=== PATIENT | female | born 1950 | race Caucasian/White ===

== ENCOUNTER 2018-08-07 18:14 | Observation (INO) ==
--- NOTE | 2018-08-07 19:23 | ED ---
HPI General Chief complaint: Altered Mental Status Stated complaint: Poss AMS Time Seen by Provider: 08/07/18 18:26 History of Present Illness HPI narrative: 68-year-old female with a history of type 1 diabetes is brought to the emergency department by EMS for evaluation of altered mental status and hypotension. Per EMS report the police were called by a neighbor to check on the patient who was driving erratically in her neighborhood. When police arrived on scene the patient was unconscious but easily arousable in her car in front of her house with the car door open. Per EMS when they arrived the patient's blood pressure was around 70/30. They have given her 1 L of fluids and her blood pressure has improved. Glucose has been normal, 120s. The patient states that this morning she was feeling fine with no issues. States that she went to the doctor for regular appointment and then went to the grocery store, after that he does not remember exactly what happened. The next thing she remembers is EMS picking her up. The patient's is at bedside and states that she was acting normally this morning and he spoke with her on the phone at 3 PM and she was normal then as well. The patient states this has never happened to her previously. She denies any chest pain, shortness of breath, abdominal pain, nausea, vomiting, diarrhea, black or bloody stool, numbness or tingling, one-sided weakness, headache, vision changes. She does complain of feeling tired. She is also complaining of mild nausea, states that this has been a chronic ongoing issue and is not new. Related Data Home Medications Medication Instructions Recorded Confirmed insulin lispro [Humalog U-100 25 unit SUB-Q QAM 08/07/18 08/07/18 Insulin] trazodone 50 mg PO DAILY 08/07/18 08/07/18 Previous Rx's Medication Instructions Recorded aspirin 81 mg PO DAILY #30 tab 08/09/18 atorvastatin 20 mg PO HS #30 tab 08/09/18 clopidogrel [Plavix] 75 mg PO DAILY #30 tab 08/09/18 nitrofurantoin monohyd/m-cryst 100 mg PO BIDPC #10 cap 08/09/18 Allergies Allergy/AdvReac Type Severity Reaction Status Date / Time No Known Allergies Allergy Unverified 08/07/18 18:32 Review of Systems ROS: all other systems reviewed are negative [facility] Social History Social History Substance History: No History of Abuse Second Hand Smoke Exposure: No Smoking Status: Former smoker How Often Do You Have a Drink Containing Alcohol: 4 or more times a week Recent Travel in [facility] within the Last 8 Weeks: No Immunization History Tetanus Immunization: >5 Years Hx Influenza Vaccine This Season: No Exam Narrative Exam Narrative: GENERAL: Well-nourished and well-developed pleasant patient in no acute distress who is nontoxic appearing. SKIN: Warm and dry. HEAD: Normocephalic and atraumatic. EYES: No injection, drainage, or hyphema noted. PERRLA. EOMI. ENT: No nasal drainage noted. Oropharynx is clear. NECK: Supple and the trachea is midline. CARDIOVASCULAR: Regular rate and rhythm. RESPIRATORY: Breath sounds are equal bilaterally with no accessory muscle use, wheezing, rhonchi, or crackles. GASTROINTESTINAL: Abdomen is soft, non-tender, and nondistended. MUSCULOSKELETAL: No obvious deformities, swelling, cyanosis, or ecchymosis is present throughout the upper and lower extremities. Patient has full range of motion without any signs of neurovascular compromise. Distal pulses are 2+ throughout. Strength 5/5 upper and lower extremities and equal bilaterally. NEUROLOGICAL: Awake, alert, and oriented. Normal speech and gait. Cranial nerves are grossly intact. Course Initial Documented Vital Signs Temperature 98.2 F 08/07/18 18:20 Pulse Rate 61 08/07/18 18:20 Respiratory Rate 20 08/07/18 18:20 Blood Pressure 146/70 H 08/07/18 18:20 Pulse Oximetry 96 08/07/18 18:20 Last Documented Vital Signs Temperature 97.6 F 08/10/18 08:00 Pulse Rate 52 L 08/10/18 09:00 Respiratory Rate 18 08/10/18 08:00 Blood Pressure 210/79 H 08/10/18 08:00 Pulse Oximetry 96 08/10/18 08:00 Medical Decision Making [facility] Narrative Medical decision making narrative: Head CT is negative. 68-year-old female presents to the emergency department for evaluation of altered mental status and hypotension. Patient is afebrile. Blood pressure is now stable at 146/70. Otherwise vital signs are within normal limits. Physical examination is essentially unremarkable. IV access is obtained, labs been drawn and sent. Patient is placed on cardiac telemetry and pulse oximetry monitoring. CT of the head has been ordered and is pending. Patient given Zofran for nausea. EKG shows sinus rhythm with no acute ST elevations or depressions. CBC is unremarkable. Coags are unremarkable. CMP is unremarkable. Troponin is elevated at 0.09. Alcohol is 36. Chest x-ray is negative. Head CT is negative. Patient has remained stable and without complaint while here in the ED. She has had 1.5 L of fluid and her blood pressure has normalized. She is much more awake at this time however does still complain of fatigue. Discussed with patient and recommend observation and trending out of cardiac enzymes. Patient verbalizes understanding and agreement with treatment plan. Medical Screen Exam Complete: Yes Emergency Medical Condition: Yes Differential Diagnosis Differential Diagnosis: Dehydration versus electrolyte abnormality versus medication reaction versus substance abuse Lab Data Result diagrams: 08/08/18 02:31 08/08/18 02:31 Lab Results 08/07/18 08/07/18 08/07/18 Range/Units 19:58 19:58 19:58 WBC 4.4 (4.0-11.0) th/mm3 RBC 4.48 (4.00-5.30) mil/mm3 Hgb 13.7 (11.6-15.3) gm/dL Hct 41.8 (35.0-46.0) % MCV 93.4 (80.0-100.0) fL MCH 30.6 (27.0-34.0) pg MCHC 32.8 (32.0-36.0) % RDW 13.5 (11.6-17.2) % Plt Count 205 (150-450) th/mm3 MPV 10.3 (7.0-11.0) fL Neut % (Auto) 56.1 (16.0-70.0) % Lymph % (Auto) 31.0 (9.0-44.0) % Ross % (Auto) 9.4 H (0.0-8.0) % Eos % (Auto) 3.0 (0.0-4.0) % Baso % (Auto) 0.5 (0.0-2.0) % Neut # (Auto) 2.5 (1.8-7.7) th/mm3 Lymph # (Auto) 1.4 (1.0-4.8) th/mm3 Ross # (Auto) 0.4 (0.0-0.9) th/mm3 Eos # (Auto) 0.1 (0.0-0.4) th/mm3 Baso # (Auto) 0.0 (0.0-0.2) th/mm3 WBC Differential . Differential Comment Auto diff final ESR (0-30) mm/hr PT 10.5 (9.8-11.6) sec INR 1.0 Ratio APTT 23.1 L (24.3-30.1) sec Sodium 146 H (136-145) meq/L Potassium 3.9 (3.5-5.1) meq/L Chloride 111 H (98-107) meq/L Carbon Dioxide 27.4 (21.0-32.0) meq/L Anion Gap 8 (5-15) meq/L BUN 17 (7-18) mg/dL Creatinine 1.00 (0.50-1.00) mg/dL Estimated GFR 55 L (>89) mL/min POC Glucose (68-110) mg/dl Random Glucose 87 (74-106) mg/dL Hemoglobin A1c (4.3-6.0) % Calcium 8.4 L (8.5-10.1) mg/dL Total Bilirubin 0.2 (0.2-1.0) mg/dL AST 14 L (15-37) U/L ALT 17 (10-53) U/L Alkaline Phosphatase 80 (45-117) U/L Ammonia (11-32) mcmol/L Total Creatine Kinase (26-192) U/L Troponin I 0.09 H (0.02-0.05) ng/mL Total Protein 6.4 (6.4-8.2) g/dL Albumin 3.2 L (3.4-5.0) g/dL Triglycerides (42-150) mg/dL Cholesterol (120-200) mg/dL LDL Cholesterol, Calc (0-99) mg/dL HDL Cholesterol (40.0-60.0) mg/dL Cholesterol/HDL Ratio Ratio Vitamin B12 (193-986) pg/mL TSH (0.358-3.740) uIU/mL Free T4 (0.76-1.46) ng/dL Urine Color (Yellw/Straw) Urine Clarity (Clear) Urine pH (5.0-8.5) Ur Specific Mclean (1.002-1.035) Urine Protein (Neg-Trace) mg/dL Urine Glucose (UA) (Negative) mg/dL Urine Ketones (Negative) mg/dL Urine Occult Blood (Negative) Urine Nitrate (Negative) Urine Bilirubin (Negative) Urine Urobilinogen (Less than 2) mg/dL Ur Leukocyte Esterase (Negative) Urine RBC (0-3) /hpf Urine WBC (0-5) /hpf Urine WBC Clumps (None) Ur Squamous Epith Cells (0-5) /hpf Urine Bacteria (None) /hpf Micro UA Comment Ur Microscopic Review Urine Culture Comments Urine Opiates Screen (Neg) Ur Barbiturates Screen (Neg) Ur Amphetamines Screen (Neg) U Benzodiazepines Scrn (Neg) Urine Cocaine Screen (Neg) U Cannabinoids Screen (Neg) Serum Alcohol (0-5) mg/dL CATHY Screen (Neg) 08/07/18 08/07/18 08/07/18 Range/Units 19:58 21:20 21:20 WBC (4.0-11.0) th/mm3 RBC (4.00-5.30) mil/mm3 Hgb (11.6-15.3) gm/dL Hct (35.0-46.0) % MCV (80.0-100.0) fL MCH (27.0-34.0) pg MCHC (32.0-36.0) % RDW (11.6-17.2) % Plt Count (150-450) th/mm3 MPV (7.0-11.0) fL Neut % (Auto) (16.0-70.0) % Lymph % (Auto) (9.0-44.0) % Ross % (Auto) (0.0-8.0) % Eos % (Auto) (0.0-4.0) % Baso % (Auto) (0.0-2.0) % Neut # (Auto) (1.8-7.7) th/mm3 Lymph # (Auto) (1.0-4.8) th/mm3 Ross # (Auto) (0.0-0.9) th/mm3 Eos # (Auto) (0.0-0.4) th/mm3 Baso # (Auto) (0.0-0.2) th/mm3 WBC Differential Differential Comment ESR (0-30) mm/hr PT (9.8-11.6) sec INR Ratio APTT (24.3-30.1) sec Sodium (136-145) meq/L Potassium (3.5-5.1) meq/L Chloride (98-107) meq/L Carbon Dioxide (21.0-32.0) meq/L Anion Gap (5-15) meq/L BUN (7-18) mg/dL Creatinine (0.50-1.00) mg/dL Estimated GFR (>89) mL/min POC Glucose (68-110) mg/dl Random Glucose (74-106) mg/dL Hemoglobin A1c (4.3-6.0) % Calcium (8.5-10.1) mg/dL Total Bilirubin (0.2-1.0) mg/dL AST (15-37) U/L ALT (10-53) U/L Alkaline Phosphatase (45-117) U/L Ammonia (11-32) mcmol/L Total Creatine Kinase (26-192) U/L Troponin I (0.02-0.05) ng/mL Total Protein (6.4-8.2) g/dL Albumin (3.4-5.0) g/dL Triglycerides (42-150) mg/dL Cholesterol (120-200) mg/dL LDL Cholesterol, Calc (0-99) mg/dL HDL Cholesterol (40.0-60.0) mg/dL Cholesterol/HDL Ratio Ratio Vitamin B12 (193-986) pg/mL TSH (0.358-3.740) uIU/mL Free T4 (0.76-1.46) ng/dL Urine Color Yellow (Yellw/Straw) Urine Clarity Hazy H (Clear) Urine pH 5.0 (5.0-8.5) Ur Specific Mclean 1.006 (1.002-1.035) Urine Protein Negative (Neg-Trace) mg/dL Urine Glucose (UA) Negative (Negative) mg/dL Urine Ketones Negative (Negative) mg/dL Urine Occult Blood Negative (Negative) Urine Nitrate Negative (Negative) Urine Bilirubin Negative (Negative) Urine Urobilinogen Less than 2 (Less than 2) mg/dL Ur Leukocyte Esterase Small H (Negative) Urine RBC 1 (0-3) /hpf Urine WBC 10 H (0-5) /hpf Urine WBC Clumps Rare H (None) Ur Squamous Epith Cells <1 (0-5) /hpf Urine Bacteria Occasional H (None) /hpf Micro UA Comment Culture indicated Ur Microscopic Review Not Reportable Urine Culture Comments Culture indicated Urine Opiates Screen Neg (Neg) Ur Barbiturates Screen Neg (Neg) Ur Amphetamines Screen Neg (Neg) U Benzodiazepines Scrn Pos H (Neg) Urine Cocaine Screen Neg (Neg) U Cannabinoids Screen Neg (Neg) Serum Alcohol 36 H (0-5) mg/dL CATHY Screen (Neg) 08/07/18 08/08/18 08/08/18 Range/Units 23:29 02:04 02:31 WBC 5.4 (4.0-11.0) th/mm3 RBC 4.54 (4.00-5.30) mil/mm3 Hgb 14.0 (11.6-15.3) gm/dL Hct 41.8 (35.0-46.0) % MCV 92.0 (80.0-100.0) fL MCH 30.8 (27.0-34.0) pg MCHC 33.5 (32.0-36.0) % RDW 13.4 (11.6-17.2) % Plt Count 204 (150-450) th/mm3 MPV 10.7 (7.0-11.0) fL Neut % (Auto) 58.0 (16.0-70.0) % Lymph % (Auto) 27.8 (9.0-44.0) % Ross % (Auto) 10.1 H (0.0-8.0) % Eos % (Auto) 3.3 (0.0-4.0) % Baso % (Auto) 0.8 (0.0-2.0) % Neut # (Auto) 3.1 (1.8-7.7) th/mm3 Lymph # (Auto) 1.5 (1.0-4.8) th/mm3 Ross # (Auto) 0.5 (0.0-0.9) th/mm3 Eos # (Auto) 0.2 (0.0-0.4) th/mm3 Baso # (Auto) 0.0 (0.0-0.2) th/mm3 WBC Differential . Differential Comment Auto diff final ESR (0-30) mm/hr PT (9.8-11.6) sec INR Ratio APTT (24.3-30.1) sec Sodium (136-145) meq/L Potassium (3.5-5.1) meq/L Chloride (98-107) meq/L Carbon Dioxide (21.0-32.0) meq/L Anion Gap (5-15) meq/L BUN (7-18) mg/dL Creatinine (0.50-1.00) mg/dL Estimated GFR (>89) mL/min POC Glucose 101 112 H (68-110) mg/dl Random Glucose (74-106) mg/dL Hemoglobin A1c (4.3-6.0) % Calcium (8.5-10.1) mg/dL Total Bilirubin (0.2-1.0) mg/dL AST (15-37) U/L ALT (10-53) U/L Alkaline Phosphatase (45-117) U/L Ammonia (11-32) mcmol/L Total Creatine Kinase (26-192) U/L Troponin I (0.02-0.05) ng/mL Total Protein (6.4-8.2) g/dL Albumin (3.4-5.0) g/dL Triglycerides (42-150) mg/dL Cholesterol (120-200) mg/dL LDL Cholesterol, Calc (0-99) mg/dL HDL Cholesterol (40.0-60.0) mg/dL Cholesterol/HDL Ratio Ratio Vitamin B12 (193-986) pg/mL TSH (0.358-3.740) uIU/mL Free T4 (0.76-1.46) ng/dL Urine Color (Yellw/Straw) Urine Clarity (Clear) Urine pH (5.0-8.5) Ur Specific Mclean (1.002-1.035) Urine Protein (Neg-Trace) mg/dL Urine Glucose (UA) (Negative) mg/dL Urine Ketones (Negative) mg/dL Urine Occult Blood (Negative) Urine Nitrate (Negative) Urine Bilirubin (Negative) Urine Urobilinogen (Less than 2) mg/dL Ur Leukocyte Esterase (Negative) Urine RBC (0-3) /hpf Urine WBC (0-5) /hpf Urine WBC Clumps (None) Ur Squamous Epith Cells (0-5) /hpf Urine Bacteria (None) /hpf Micro UA Comment Ur Microscopic Review Urine Culture Comments Urine Opiates Screen (Neg) Ur Barbiturates Screen (Neg) Ur Amphetamines Screen (Neg) U Benzodiazepines Scrn (Neg) Urine Cocaine Screen (Neg) U Cannabinoids Screen (Neg) Serum Alcohol (0-5) mg/dL CATHY Screen (Neg) 08/08/18 08/08/18 08/08/18 Range/Units 02:31 05:28 09:08 WBC (4.0-11.0) th/mm3 RBC (4.00-5.30) mil/mm3 Hgb (11.6-15.3) gm/dL Hct (35.0-46.0) % MCV (80.0-100.0) fL MCH (27.0-34.0) pg MCHC (32.0-36.0) % RDW (11.6-17.2) % Plt Count (150-450) th/mm3 MPV (7.0-11.0) fL Neut % (Auto) (16.0-70.0) % Lymph % (Auto) (9.0-44.0) % Ross % (Auto) (0.0-8.0) % Eos % (Auto) (0.0-4.0) % Baso % (Auto) (0.0-2.0) % Neut # (Auto) (1.8-7.7) th/mm3 Lymph # (Auto) (1.0-4.8) th/mm3 Ross # (Auto) (0.0-0.9) th/mm3 Eos # (Auto) (0.0-0.4) th/mm3 Baso # (Auto) (0.0-0.2) th/mm3 WBC Differential Differential Comment ESR (0-30) mm/hr PT (9.8-11.6) sec INR Ratio APTT (24.3-30.1) sec Sodium 146 H (136-145) meq/L Potassium 4.1 (3.5-5.1) meq/L Chloride 111 H (98-107) meq/L Carbon Dioxide 27.7 (21.0-32.0) meq/L Anion Gap 7 (5-15) meq/L BUN 14 (7-18) mg/dL Creatinine 0.92 (0.50-1.00) mg/dL Estimated GFR 61 L (>89) mL/min POC Glucose 101 96 (68-110) mg/dl Random Glucose 98 (74-106) mg/dL Hemoglobin A1c (4.3-6.0) % Calcium 8.4 L (8.5-10.1) mg/dL Total Bilirubin (0.2-1.0) mg/dL AST (15-37) U/L ALT (10-53) U/L Alkaline Phosphatase (45-117) U/L Ammonia (11-32) mcmol/L Total Creatine Kinase 38 (26-192) U/L Troponin I 0.08 H (0.02-0.05) ng/mL Total Protein (6.4-8.2) g/dL Albumin (3.4-5.0) g/dL Triglycerides (42-150) mg/dL Cholesterol (120-200) mg/dL LDL Cholesterol, Calc (0-99) mg/dL HDL Cholesterol (40.0-60.0) mg/dL Cholesterol/HDL Ratio Ratio Vitamin B12 (193-986) pg/mL TSH (0.358-3.740) uIU/mL Free T4 (0.76-1.46) ng/dL Urine Color (Yellw/Straw) Urine Clarity (Clear) Urine pH (5.0-8.5) Ur Specific Mclean (1.002-1.035) Urine Protein (Neg-Trace) mg/dL Urine Glucose (UA) (Negative) mg/dL Urine Ketones (Negative) mg/dL Urine Occult Blood (Negative) Urine Nitrate (Negative) Urine Bilirubin (Negative) Urine Urobilinogen (Less than 2) mg/dL Ur Leukocyte Esterase (Negative) Urine RBC (0-3) /hpf Urine WBC (0-5) /hpf Urine WBC Clumps (None) Ur Squamous Epith Cells (0-5) /hpf Urine Bacteria (None) /hpf Micro UA Comment Ur Microscopic Review Urine Culture Comments Urine Opiates Screen (Neg) Ur Barbiturates Screen (Neg) Ur Amphetamines Screen (Neg) U Benzodiazepines Scrn (Neg) Urine Cocaine Screen (Neg) U Cannabinoids Screen (Neg) Serum Alcohol (0-5) mg/dL CATHY Screen (Neg) 08/08/18 08/08/18 08/08/18 Range/Units 11:46 12:15 16:37 WBC (4.0-11.0) th/mm3 RBC (4.00-5.30) mil/mm3 Hgb (11.6-15.3) gm/dL Hct (35.0-46.0) % MCV (80.0-100.0) fL MCH (27.0-34.0) pg MCHC (32.0-36.0) % RDW (11.6-17.2) % Plt Count (150-450) th/mm3 MPV (7.0-11.0) fL Neut % (Auto) (16.0-70.0) % Lymph % (Auto) (9.0-44.0) % Ross % (Auto) (0.0-8.0) % Eos % (Auto) (0.0-4.0) % Baso % (Auto) (0.0-2.0) % Neut # (Auto) (1.8-7.7) th/mm3 Lymph # (Auto) (1.0-4.8) th/mm3 Ross # (Auto) (0.0-0.9) th/mm3 Eos # (Auto) (0.0-0.4) th/mm3 Baso # (Auto) (0.0-0.2) th/mm3 WBC Differential Differential Comment ESR (0-30) mm/hr PT (9.8-11.6) sec INR Ratio APTT (24.3-30.1) sec Sodium (136-145) meq/L Potassium (3.5-5.1) meq/L Chloride (98-107) meq/L Carbon Dioxide (21.0-32.0) meq/L Anion Gap (5-15) meq/L BUN (7-18) mg/dL Creatinine (0.50-1.00) mg/dL Estimated GFR (>89) mL/min POC Glucose 108 230 H (68-110) mg/dl Random Glucose (74-106) mg/dL Hemoglobin A1c (4.3-6.0) % Calcium (8.5-10.1) mg/dL Total Bilirubin (0.2-1.0) mg/dL AST (15-37) U/L ALT (10-53) U/L Alkaline Phosphatase (45-117) U/L Ammonia (11-32) mcmol/L Total Creatine Kinase 30 (26-192) U/L Troponin I 0.07 H (0.02-0.05) ng/mL Total Protein (6.4-8.2) g/dL Albumin (3.4-5.0) g/dL Triglycerides (42-150) mg/dL Cholesterol (120-200) mg/dL LDL Cholesterol, Calc (0-99) mg/dL HDL Cholesterol (40.0-60.0) mg/dL Cholesterol/HDL Ratio Ratio Vitamin B12 (193-986) pg/mL TSH (0.358-3.740) uIU/mL Free T4 (0.76-1.46) ng/dL Urine Color (Yellw/Straw) Urine Clarity (Clear) Urine pH (5.0-8.5) Ur Specific Mclean (1.002-1.035) Urine Protein (Neg-Trace) mg/dL Urine Glucose (UA) (Negative) mg/dL Urine Ketones (Negative) mg/dL Urine Occult Blood (Negative) Urine Nitrate (Negative) Urine Bilirubin (Negative) Urine Urobilinogen (Less than 2) mg/dL Ur Leukocyte Esterase (Negative) Urine RBC (0-3) /hpf Urine WBC (0-5) /hpf Urine WBC Clumps (None) Ur Squamous Epith Cells (0-5) /hpf Urine Bacteria (None) /hpf Micro UA Comment Ur Microscopic Review Urine Culture Comments Urine Opiates Screen (Neg) Ur Barbiturates Screen (Neg) Ur Amphetamines Screen (Neg) U Benzodiazepines Scrn (Neg) Urine Cocaine Screen (Neg) U Cannabinoids Screen (Neg) Serum Alcohol (0-5) mg/dL CATHY Screen (Neg) 08/08/18 08/08/18 08/08/18 Range/Units 18:01 20:30 20:30 WBC (4.0-11.0) th/mm3 RBC (4.00-5.30) mil/mm3 Hgb (11.6-15.3) gm/dL Hct (35.0-46.0) % MCV (80.0-100.0) fL MCH (27.0-34.0) pg MCHC (32.0-36.0) % RDW (11.6-17.2) % Plt Count (150-450) th/mm3 MPV (7.0-11.0) fL Neut % (Auto) (16.0-70.0) % Lymph % (Auto) (9.0-44.0) % Ross % (Auto) (0.0-8.0) % Eos % (Auto) (0.0-4.0) % Baso % (Auto) (0.0-2.0) % Neut # (Auto) (1.8-7.7) th/mm3 Lymph # (Auto) (1.0-4.8) th/mm3 Ross # (Auto) (0.0-0.9) th/mm3 Eos # (Auto) (0.0-0.4) th/mm3 Baso # (Auto) (0.0-0.2) th/mm3 WBC Differential Differential Comment ESR 12 (0-30) mm/hr PT (9.8-11.6) sec INR Ratio APTT (24.3-30.1) sec Sodium (136-145) meq/L Potassium (3.5-5.1) meq/L Chloride (98-107) meq/L Carbon Dioxide (21.0-32.0) meq/L Anion Gap (5-15) meq/L BUN (7-18) mg/dL Creatinine (0.50-1.00) mg/dL Estimated GFR (>89) mL/min POC Glucose 152 H (68-110) mg/dl Random Glucose (74-106) mg/dL Hemoglobin A1c (4.3-6.0) % Calcium (8.5-10.1) mg/dL Total Bilirubin (0.2-1.0) mg/dL AST (15-37) U/L ALT (10-53) U/L Alkaline Phosphatase (45-117) U/L Ammonia (11-32) mcmol/L Total Creatine Kinase (26-192) U/L Troponin I (0.02-0.05) ng/mL Total Protein (6.4-8.2) g/dL Albumin (3.4-5.0) g/dL Triglycerides (42-150) mg/dL Cholesterol (120-200) mg/dL LDL Cholesterol, Calc (0-99) mg/dL HDL Cholesterol (40.0-60.0) mg/dL Cholesterol/HDL Ratio Ratio Vitamin B12 321 (193-986) pg/mL TSH (0.358-3.740) uIU/mL Free T4 0.86 (0.76-1.46) ng/dL Urine Color (Yellw/Straw) Urine Clarity (Clear) Urine pH (5.0-8.5) Ur Specific Mclean (1.002-1.035) Urine Protein (Neg-Trace) mg/dL Urine Glucose (UA) (Negative) mg/dL Urine Ketones (Negative) mg/dL Urine Occult Blood (Negative) Urine Nitrate (Negative) Urine Bilirubin (Negative) Urine Urobilinogen (Less than 2) mg/dL Ur Leukocyte Esterase (Negative) Urine RBC (0-3) /hpf Urine WBC (0-5) /hpf Urine WBC Clumps (None) Ur Squamous Epith Cells (0-5) /hpf Urine Bacteria (None) /hpf Micro UA Comment Ur Microscopic Review Urine Culture Comments Urine Opiates Screen (Neg) Ur Barbiturates Screen (Neg) Ur Amphetamines Screen (Neg) U Benzodiazepines Scrn (Neg) Urine Cocaine Screen (Neg) U Cannabinoids Screen (Neg) Serum Alcohol (0-5) mg/dL CATHY Screen (Neg) 08/08/18 08/08/18 08/09/18 Range/Units 20:30 22:49 05:57 WBC (4.0-11.0) th/mm3 RBC (4.00-5.30) mil/mm3 Hgb (11.6-15.3) gm/dL Hct (35.0-46.0) % MCV (80.0-100.0) fL MCH (27.0-34.0) pg MCHC (32.0-36.0) % RDW (11.6-17.2) % Plt Count (150-450) th/mm3 MPV (7.0-11.0) fL Neut % (Auto) (16.0-70.0) % Lymph % (Auto) (9.0-44.0) % Ross % (Auto) (0.0-8.0) % Eos % (Auto) (0.0-4.0) % Baso % (Auto) (0.0-2.0) % Neut # (Auto) (1.8-7.7) th/mm3 Lymph # (Auto) (1.0-4.8) th/mm3 Ross # (Auto) (0.0-0.9) th/mm3 Eos # (Auto) (0.0-0.4) th/mm3 Baso # (Auto) (0.0-0.2) th/mm3 WBC Differential Differential Comment ESR (0-30) mm/hr PT (9.8-11.6) sec INR Ratio APTT (24.3-30.1) sec Sodium (136-145) meq/L Potassium (3.5-5.1) meq/L Chloride (98-107) meq/L Carbon Dioxide (21.0-32.0) meq/L Anion Gap (5-15) meq/L BUN (7-18) mg/dL Creatinine (0.50-1.00) mg/dL Estimated GFR (>89) mL/min POC Glucose 108 (68-110) mg/dl Random Glucose (74-106) mg/dL Hemoglobin A1c 5.9 (4.3-6.0) % Calcium (8.5-10.1) mg/dL Total Bilirubin (0.2-1.0) mg/dL AST (15-37) U/L ALT (10-53) U/L Alkaline Phosphatase (45-117) U/L Ammonia (11-32) mcmol/L Total Creatine Kinase (26-192) U/L Troponin I (0.02-0.05) ng/mL Total Protein (6.4-8.2) g/dL Albumin (3.4-5.0) g/dL Triglycerides (42-150) mg/dL Cholesterol (120-200) mg/dL LDL Cholesterol, Calc (0-99) mg/dL HDL Cholesterol (40.0-60.0) mg/dL Cholesterol/HDL Ratio Ratio Vitamin B12 (193-986) pg/mL TSH (0.358-3.740) uIU/mL Free T4 (0.76-1.46) ng/dL Urine Color (Yellw/Straw) Urine Clarity (Clear) Urine pH (5.0-8.5) Ur Specific Mclean (1.002-1.035) Urine Protein (Neg-Trace) mg/dL Urine Glucose (UA) (Negative) mg/dL Urine Ketones (Negative) mg/dL Urine Occult Blood (Negative) Urine Nitrate (Negative) Urine Bilirubin (Negative) Urine Urobilinogen (Less than 2) mg/dL Ur Leukocyte Esterase (Negative) Urine RBC (0-3) /hpf Urine WBC (0-5) /hpf Urine WBC Clumps (None) Ur Squamous Epith Cells (0-5) /hpf Urine Bacteria (None) /hpf Micro UA Comment Ur Microscopic Review Urine Culture Comments Urine Opiates Screen (Neg) Ur Barbiturates Screen (Neg) Ur Amphetamines Screen (Neg) U Benzodiazepines Scrn (Neg) Urine Cocaine Screen (Neg) U Cannabinoids Screen (Neg) Serum Alcohol (0-5) mg/dL CATHY Screen Neg (Neg) 08/09/18 08/09/18 08/09/18 Range/Units 05:57 07:43 11:25 WBC (4.0-11.0) th/mm3 RBC (4.00-5.30) mil/mm3 Hgb (11.6-15.3) gm/dL Hct (35.0-46.0) % MCV (80.0-100.0) fL MCH (27.0-34.0) pg MCHC (32.0-36.0) % RDW (11.6-17.2) % Plt Count (150-450) th/mm3 MPV (7.0-11.0) fL Neut % (Auto) (16.0-70.0) % Lymph % (Auto) (9.0-44.0) % Ross % (Auto) (0.0-8.0) % Eos % (Auto) (0.0-4.0) % Baso % (Auto) (0.0-2.0) % Neut # (Auto) (1.8-7.7) th/mm3 Lymph # (Auto) (1.0-4.8) th/mm3 Ross # (Auto) (0.0-0.9) th/mm3 Eos # (Auto) (0.0-0.4) th/mm3 Baso # (Auto) (0.0-0.2) th/mm3 WBC Differential Differential Comment ESR (0-30) mm/hr PT (9.8-11.6) sec INR Ratio APTT (24.3-30.1) sec Sodium (136-145) meq/L Potassium (3.5-5.1) meq/L Chloride (98-107) meq/L Carbon Dioxide (21.0-32.0) meq/L Anion Gap (5-15) meq/L BUN (7-18) mg/dL Creatinine (0.50-1.00) mg/dL Estimated GFR (>89) mL/min POC Glucose 115 H 142 H (68-110) mg/dl Random Glucose (74-106) mg/dL Hemoglobin A1c (4.3-6.0) % Calcium (8.5-10.1) mg/dL Total Bilirubin (0.2-1.0) mg/dL AST (15-37) U/L ALT (10-53) U/L Alkaline Phosphatase (45-117) U/L Ammonia (11-32) mcmol/L Total Creatine Kinase (26-192) U/L Troponin I (0.02-0.05) ng/mL Total Protein (6.4-8.2) g/dL Albumin (3.4-5.0) g/dL Triglycerides 238 H (42-150) mg/dL Cholesterol 185 (120-200) mg/dL LDL Cholesterol, Calc 93 (0-99) mg/dL HDL Cholesterol 44.8 (40.0-60.0) mg/dL Cholesterol/HDL Ratio 4.12 Ratio Vitamin B12 (193-986) pg/mL TSH 2.830 (0.358-3.740) uIU/mL Free T4 (0.76-1.46) ng/dL Urine Color (Yellw/Straw) Urine Clarity (Clear) Urine pH (5.0-8.5) Ur Specific Mclean (1.002-1.035) Urine Protein (Neg-Trace) mg/dL Urine Glucose (UA) (Negative) mg/dL Urine Ketones (Negative) mg/dL Urine Occult Blood (Negative) Urine Nitrate (Negative) Urine Bilirubin (Negative) Urine Urobilinogen (Less than 2) mg/dL Ur Leukocyte Esterase (Negative) Urine RBC (0-3) /hpf Urine WBC (0-5) /hpf Urine WBC Clumps (None) Ur Squamous Epith Cells (0-5) /hpf Urine Bacteria (None) /hpf Micro UA Comment Ur Microscopic Review Urine Culture Comments Urine Opiates Screen (Neg) Ur Barbiturates Screen (Neg) Ur Amphetamines Screen (Neg) U Benzodiazepines Scrn (Neg) Urine Cocaine Screen (Neg) U Cannabinoids Screen (Neg) Serum Alcohol (0-5) mg/dL CATHY Screen (Neg) 08/09/18 08/09/18 08/09/18 Range/Units 12:56 16:53 21:44 WBC (4.0-11.0) th/mm3 RBC (4.00-5.30) mil/mm3 Hgb (11.6-15.3) gm/dL Hct (35.0-46.0) % MCV (80.0-100.0) fL MCH (27.0-34.0) pg MCHC (32.0-36.0) % RDW (11.6-17.2) % Plt Count (150-450) th/mm3 MPV (7.0-11.0) fL Neut % (Auto) (16.0-70.0) % Lymph % (Auto) (9.0-44.0) % Ross % (Auto) (0.0-8.0) % Eos % (Auto) (0.0-4.0) % Baso % (Auto) (0.0-2.0) % Neut # (Auto) (1.8-7.7) th/mm3 Lymph # (Auto) (1.0-4.8) th/mm3 [place] # (Auto) (0.0-0.9) th/mm3 Eos # (Auto) (0.0-0.4) th/mm3 Baso # (Auto) (0.0-0.2) th/mm3 WBC Differential Differential Comment ESR (0-30) mm/hr PT (9.8-11.6) sec INR Ratio APTT (24.3-30.1) sec Sodium (136-145) meq/L Potassium (3.5-5.1) meq/L Chloride (98-107) meq/L Carbon Dioxide (21.0-32.0) meq/L Anion Gap (5-15) meq/L BUN (7-18) mg/dL Creatinine (0.50-1.00) mg/dL Estimated GFR (>89) mL/min POC Glucose 209 H 115 H (68-110) mg/dl Random Glucose (74-106) mg/dL Hemoglobin A1c (4.3-6.0) % Calcium (8.5-10.1) mg/dL Total Bilirubin (0.2-1.0) mg/dL AST (15-37) U/L ALT (10-53) U/L Alkaline Phosphatase (45-117) U/L Ammonia 14 (11-32) mcmol/L Total Creatine Kinase (26-192) U/L Troponin I (0.02-0.05) ng/mL Total Protein (6.4-8.2) g/dL Albumin (3.4-5.0) g/dL Triglycerides (42-150) mg/dL Cholesterol (120-200) mg/dL LDL Cholesterol, Calc (0-99) mg/dL HDL Cholesterol (40.0-60.0) mg/dL Cholesterol/HDL Ratio Ratio Vitamin B12 (193-986) pg/mL TSH (0.358-3.740) uIU/mL Free T4 (0.76-1.46) ng/dL Urine Color (Yellw/Straw) Urine Clarity (Clear) Urine pH (5.0-8.5) Ur Specific [place] (1.002-1.035) Urine Protein (Neg-Trace) mg/dL Urine Glucose (UA) (Negative) mg/dL Urine Ketones (Negative) mg/dL Urine Occult Blood (Negative) Urine Nitrate (Negative) Urine Bilirubin (Negative) Urine Urobilinogen (Less than 2) mg/dL Ur Leukocyte Esterase (Negative) Urine RBC (0-3) /hpf Urine WBC (0-5) /hpf Urine WBC Clumps (None) Ur Squamous Epith Cells (0-5) /hpf Urine Bacteria (None) /hpf Micro UA Comment Ur Microscopic Review Urine Culture Comments Urine Opiates Screen (Neg) Ur Barbiturates Screen (Neg) Ur Amphetamines Screen (Neg) U Benzodiazepines Scrn (Neg) Urine Cocaine Screen (Neg) U Cannabinoids Screen (Neg) Serum Alcohol (0-5) mg/dL CATHY Screen (Neg) 08/10/18 Range/Units 07:14 WBC (4.0-11.0) th/mm3 RBC (4.00-5.30) mil/mm3 Hgb (11.6-15.3) gm/dL Hct (35.0-46.0) % MCV (80.0-100.0) fL MCH (27.0-34.0) pg MCHC (32.0-36.0) % RDW (11.6-17.2) % Plt Count (150-450) th/mm3 MPV (7.0-11.0) fL Neut % (Auto) (16.0-70.0) % Lymph % (Auto) (9.0-44.0) % Ross % (Auto) (0.0-8.0) % Eos % (Auto) (0.0-4.0) % Baso % (Auto) (0.0-2.0) % Neut # (Auto) (1.8-7.7) th/mm3 Lymph # (Auto) (1.0-4.8) th/mm3 Ross # (Auto) (0.0-0.9) th/mm3 Eos # (Auto) (0.0-0.4) th/mm3 Baso # (Auto) (0.0-0.2) th/mm3 WBC Differential Differential Comment ESR (0-30) mm/hr PT (9.8-11.6) sec INR Ratio APTT (24.3-30.1) sec Sodium (136-145) meq/L Potassium (3.5-5.1) meq/L Chloride (98-107) meq/L Carbon Dioxide (21.0-32.0) meq/L Anion Gap (5-15) meq/L BUN (7-18) mg/dL Creatinine (0.50-1.00) mg/dL Estimated GFR (>89) mL/min POC Glucose 159 H (68-110) mg/dl Random Glucose (74-106) mg/dL Hemoglobin A1c (4.3-6.0) % Calcium (8.5-10.1) mg/dL Total Bilirubin (0.2-1.0) mg/dL AST (15-37) U/L ALT (10-53) U/L Alkaline Phosphatase (45-117) U/L Ammonia (11-32) mcmol/L Total Creatine Kinase (26-192) U/L Troponin I (0.02-0.05) ng/mL Total Protein (6.4-8.2) g/dL Albumin (3.4-5.0) g/dL Triglycerides (42-150) mg/dL Cholesterol (120-200) mg/dL LDL Cholesterol, Calc (0-99) mg/dL HDL Cholesterol (40.0-60.0) mg/dL Cholesterol/HDL Ratio Ratio Vitamin B12 (193-986) pg/mL TSH (0.358-3.740) uIU/mL Free T4 (0.76-1.46) ng/dL Urine Color (Yellw/Straw) Urine Clarity (Clear) Urine pH (5.0-8.5) Ur Specific [place] (1.002-1.035) Urine Protein (Neg-Trace) mg/dL Urine Glucose (UA) (Negative) mg/dL Urine Ketones (Negative) mg/dL Urine Occult Blood (Negative) Urine Nitrate (Negative) Urine Bilirubin (Negative) Urine Urobilinogen (Less than 2) mg/dL Ur Leukocyte Esterase (Negative) Urine RBC (0-3) /hpf Urine WBC (0-5) /hpf Urine WBC Clumps (None) Ur Squamous Epith Cells (0-5) /hpf Urine Bacteria (None) /hpf Micro UA Comment Ur Microscopic Review Urine Culture Comments Urine Opiates Screen (Neg) Ur Barbiturates Screen (Neg) Ur Amphetamines Screen (Neg) U Benzodiazepines Scrn (Neg) Urine Cocaine Screen (Neg) U Cannabinoids Screen (Neg) Serum Alcohol (0-5) mg/dL CATHY Screen (Neg) Imaging Data Radiologist's impression: Chest X-Ray 08/07/18 19:15 CONCLUSION: No evidence of acute cardiopulmonary disease. Head CT 08/07/18 19:15 CONCLUSION: Negative noncontrast head CT. . Carotid Doppler Study 08/08/18 00:00 CONCLUSION: 1. Right Internal Carotid Artery: No significant stenosis; mild atherosclerotic plaque is visualized. 2. Left Internal Carotid Artery: No significant stenosis; mild atherosclerotic plaque is visualized. 3. Antegrade flow both vertebral arteries. Myocardial Perfusion Scan Nuc Med 08/09/18 00:00 CONCLUSION: 1. No definite reversible perfusion defects are identified at this time. 2. Ejection fraction of 43%. Discharge Plan Discharge Disposition Patient Disposition: 01 Discharge Home Discharge Condition Condition: Stable Discharge Order Discharge Orders: Discharge Order (Routine); Ordered 08/09/18 Ordered By: Rand Diaz Discharge Details Anticipated Discharge Date: 08/09/18 Discharge Comment: Discharge pending EEG, ammonia level, PT/OT recommendations Physicians Team ED Provider: Graff,Mitchel ED Midlevel Provider: Madhavi Aldridge Primary Care Provider: Queta Bell Attending Provider: Bonifacio Pearce Other Providers: Alfonso Hunter ; Adriano Muñiz Status ED Status: Left Department Discharge Information Discharge Date/Time: 08/08/18 01:35
--- NOTE | 2018-08-07 19:48 | XR ---
EXAM DATE: 08/07/2018 7:45 PM EDT AGE/SEX: 68 years / Female INDICATIONS: Syncope episode. CLINICAL DATA: This is the patient's initial encounter. Patient reports that signs and symptoms have been present for 1 day and indicates a pain score of 0/10. MEDICAL/SURGICAL HISTORY: Diabetes mellitus type II. None. COMPARISON: No prior exams available for comparison. FINDINGS: A single AP view of the chest demonstrates the lungs to be symmetrically aerated without evidence of mass, infiltrate or effusion. The cardiomediastinal contours are unremarkable. Osseous structures a re intact. CONCLUSION: No evidence of acute cardiopulmonary disease. Electronically signed by: Juan Jose York MD 08/07/2018 7:46 PM EDT
--- NOTE | 2018-08-07 19:55 | CT ---
EXAM DATE: 08/07/2018 7:49 PM EDT AGE/SEX: 68 years / Female INDICATIONS: Altered mental status CLINICAL DATA: This is the patient's initial encounter. Patient reports that signs and symptoms have been present for 1 day and indicates a pain score of 2/10. MEDICAL/SURGICAL HISTORY: Diabetes. Hypertension. None. RADIATION DOSE: 56.35 CTDI (mGy) COMPARISON: No prior exams available for comparison. TECHNIQUE: CT of the head without contrast. Using automated exposure control and adjustment of the mA and/or kV according to patient size, radiation dose was kept as low as reasonably achievable to ob tain optimal diagnostic quality images. DICOM format image data is available electronically for revi ew and comparison. FINDINGS: Cerebrum: The ventricles are normal for age. No evidence of midline shift, mass lesion, hemorrhage or acute infarction. No extraaxial fluid collections are seen. Posterior Fossa: The cerebellum and brainstem are intact. The 4th ventricle is midline. The cerebe llopontine angle is unremarkable. Extracranial: The visualized portion of the orbits is intact. Skull: The calvaria is intact. No evidence of skull fracture. CONCLUSION: Negative noncontrast head CT. . Electronically signed by: Juan Jose York MD 08/07/2018 7:54 PM EDT
[2018-08-07] MEDS ORDERED: Sodium Chlor 0.9% Inj 500 ML IV.SIG SCH (20:00)
[2018-08-07 20:08] LABS: Baso % (Auto) 0.5 % (0.0-2.0); Eos # (Auto) 0.1 th/mm3 (0.0-0.4); Hematocrit 41.8 % (35.0-46.0); Hemoglobin 13.7 gm/dL (11.6-15.3); Lymph # (Auto) 1.4 th/mm3 (1.0-4.8); Mean Corpuscular HGB Conc 32.8 % (32.0-36.0); Mean Corpuscular Hemoglobin 30.6 pg (27.0-34.0); Mean Corpuscular Volume 93.4 fL (80.0-100.0); Mean Platelet Volume 10.3 fL (7.0-11.0); Mono # (Auto) 0.4 th/mm3 (0.0-0.9); Mono % (Auto) 9.4 % (0.0-8.0); Neut # (Auto) 2.5 th/mm3 (1.8-7.7); Neut % (Auto) 56.1 % (16.0-70.0); Platelet Count 205 th/mm3 (150-450); Red Blood Count 4.48 mil/mm3 (4.00-5.30); Red Cell Distribution Width 13.5 % (11.6-17.2); White Blood Count 4.4 th/mm3 (4.0-11.0)
[2018-08-07 20:15] LABS: Activated Partial Thrombo Time 23.1 sec (24.3-30.1); Prothrombin Time 10.5 sec (9.8-11.6)
[2018-08-07 20:31] LABS: Albumin 3.2 g/dL (3.4-5.0); Anion Gap 8 meq/L (5-15); Aspartate Aminotransferase 14 U/L (15-37); Blood Urea Nitrogen 17 mg/dL (7-18); Calcium 8.4 mg/dL (8.5-10.1); Carbon Dioxide 27.4 meq/L (21.0-32.0); Chloride 111 meq/L (98-107); Glomerular Filtration Rate 55 mL/min (>89); Glucose,Random 87 mg/dL (74-106); Potassium 3.9 meq/L (3.5-5.1); Sodium 146 meq/L (136-145)
[2018-08-07 20:32] LABS: Alanine Aminotransferase 17 U/L (10-53)
[2018-08-07 20:36] LABS: Alkaline Phosphatase 80 U/L (45-117); Total Protein 6.4 g/dL (6.4-8.2); Troponin I 0.09 ng/mL (0.02-0.05)
[2018-08-07 21:40] LABS: Bacteria,Urine Occasional /hpf; Bilirubin,Urine Negative (Negative); Clarity,Urine Hazy (Clear); Color,Urine Yellow (Yellw/Straw); Glucose,Urine (UA) Negative (Negative); Leukocyte Esterase,Urine Small (Negative); Nitrite,Urine Negative (Negative); Specific Gravity,Urine 1.006 (1.002-1.035); Squamous Epithelial Cell,Urine <1 /hpf (0-5)
[2018-08-07 22:33] LABS: Amphetamine Screen,Urine Neg (Neg); Barbiturate Screen,Urine Neg (Neg); Cannabinoid Screen,Urine Neg (Neg); Cocaine Screen,Urine Neg (Neg)
[2018-08-07 22:34] LABS: Opiate Screen,Urine Neg (Neg)
[2018-08-07] MEDS ORDERED: Acetaminophen 325 MG Tablet PO PRN (23:03)
[2018-08-07] MEDS ORDERED: Dextrose 50% in Water 50 ML Vial IV.PUSH PRN (23:11)
[2018-08-07] MEDS ORDERED: Heparin - SQ 10,000 UNITS/ML Vial SQ SCH (23:15)
--- NOTE | 2018-08-08 00:05 | P.HP ---
History of Present Illness Service: [facility] Primary Care Physician: Queta Bell DO History of Present Illness: 68-year-old female with past medical history significant for type 1 diabetes mellitus, neuropathy and history of frequent UTIs presents to the emergency department for the evaluation of altered mental status and hypotension. Per EMS , the police were called by a neighbor to check on the patient who was driving erratically in her neighborhood. When the police arrived on the scene the patient was unconscious but easily arousable in her car in front of her house with the car door open. The patient's blood pressure was found to be 70/30. They gave her a 1 L fluid bolus and her blood pressure improved. Blood sugar was 120. The patient states that this morning she was feeling fine without issues. She states she drove to the hardware store. That is the last thing she recalls. She does not recall driving home or arriving at home. Of note, the patient takes Ambien and Xanax and drank a glass of wine prior to leaving to the store. She states the last time she took the Ambien or Xanax was last night before bed. She remains drowsy during her interview. She denies any chest pain or shortness of breath. No abdominal pain. No nausea/no lateralizing signs/symptoms. No fevers/chills. Review of Systems All other systems reviewed negative except as stated in HPI PMFSH - History History Provided By: Patient, Insole Taper / EMT - Medical History Medical History: Medical History (Last Updated 08/07/18 @ 23:56 by Julianne Garcia MD) Diabetes HTN (hypertension) Neuropathy - Surgical History Surgical History: Surgical History (Last Updated 08/07/18 @ 23:58 by Julianne Garcia MD) History of carpal tunnel surgery History of cholecystectomy History of shoulder surgery Hx of gastric bypass Hx of tonsillectomy - Family History Family History: Family History (Last Updated 08/07/18 @ 23:59 by Julianne Garcia MD) Other Diabetes mellitus - Tobacco History Smoking Status: Former smoker - Alcohol History How Often Do You Have a Drink Containing Alcohol: 4 or more times a week - Travel History Recent Travel in the [facility] Within the Last 8 Weeks: No - Immunization History Tetanus Immunization: >5 Years Hx Influenza Vaccine This Season: No Medications and Allergies Active Medications: Active Medications Acetaminophen (Tylenol) 650 mg PO Q4H PRN PRN Reason: Temp > 100.4 Cephalexin Monohydrate (Keflex) 500 mg PO Q6HR YASMIN Dextrose (D50w Vial) 50 ml IV.PUSH UNSCH PRN PRN Reason: PER HYPOGLYCEMIA PROTOCOL Glucagon (Glucagon Inj) 1 mg OTHER PRN PRN PRN Reason: for Hypoglycemia Protocol Sodium Chloride (Ns Inj) 500 mls @ 0 mls/hr IV.SIG BOLUS YASMIN Last Admin: 08/07/18 23:02 Dose: 500 mls/hr Sodium Chloride (Ns Inj) 1,000 mls @ 100 mls/hr IV.CONT .Q10H YASMIN Insulin Aspart (Novolog Insulin Correctional Sugar Inj) 0 unit SQ ACHS YASMIN; Protocol Ondansetron HCl (Zofran Inj) 4 mg IV.PUSH Q6H PRN PRN Reason: NAUSEA OR VOMITING Sodium Chloride (Ns Flush) 2 ml IV.FLUSH PRN PRN PRN Reason: FLUSH AFTER USING IV ACCESS Allergies Allergy/AdvReac Type Severity Reaction Status Date / Time No Known Allergies Allergy Unverified 08/07/18 18:32 Home Medications Medication Instructions Recorded Confirmed Type insulin lispro [Humalog U-100 25 unit SUB-Q QAM 08/07/18 08/07/18 History Insulin] trazodone 50 mg PO DAILY 08/07/18 08/07/18 History zolpidem [Ambien] 10 mg PO HS 08/07/18 08/07/18 History Exam Vital signs: Vital Signs 08/07/18 18:20 08/07/18 22:18 08/07/18 23:10 Temperature 98.2 F Pulse Rate 61 64 Respiratory Rate 20 16 Blood Pressure 146/70 H 191/72 H 196/81 H Pulse Oximetry 96 98 Intake & Output 08/07/18 08/07/18 08/08/18 06:59 18:59 06:59 Weight 117.934 kg Narrative: Gen.: No acute distress Head: Normocephalic. Atraumatic. EENT: Pupils equal round and reactive to light. Nose without drainage. Airway intact. Throat without injection. Cardiovascular: Regular rate and rhythm. No murmurs, rubs or gallops. Respiratory: Lungs clear to auscultation bilaterally. No wheezes or rhonchi. Abdomen: Soft, nontender, nondistended. No peritoneal signs. Musculoskeletal: No gross deformities. No edema. Skin: No obvious rashes or erythema. Neuro: Cranial nerves II through XII intact. 5/5 strength throughout. Mildly slurred speech. Drowsy. Results - Labs CBC & Chem 7: 08/07/18 19:58 08/07/18 19:58 Labs: Laboratory Results - last 24 hr 08/07/18 08/07/18 08/07/18 19:58 19:58 19:58 WBC 4.4 RBC 4.48 Hgb 13.7 Hct 41.8 MCV 93.4 MCH 30.6 MCHC 32.8 RDW 13.5 Plt Count 205 MPV 10.3 Neut % (Auto) 56.1 Lymph % (Auto) 31.0 [place] % (Auto) 9.4 H Eos % (Auto) 3.0 Baso % (Auto) 0.5 Neut # (Auto) 2.5 Lymph # (Auto) 1.4 [place] # (Auto) 0.4 Eos # (Auto) 0.1 Baso # (Auto) 0.0 WBC Differential . Differential Comment Auto diff final PT 10.5 INR 1.0 APTT 23.1 L Sodium 146 H Potassium 3.9 Chloride 111 H Carbon Dioxide 27.4 Anion Gap 8 BUN 17 Creatinine 1.00 Estimated GFR 55 L POC Glucose Random Glucose 87 Calcium 8.4 L Total Bilirubin 0.2 AST 14 L ALT 17 Alkaline Phosphatase 80 Troponin I 0.09 H Total Protein 6.4 Albumin 3.2 L Urine Color Urine Clarity Urine pH Ur Specific Sandy Urine Protein Urine Glucose (UA) Urine Ketones Urine Occult Blood Urine Nitrate Urine Bilirubin Urine Urobilinogen Ur Leukocyte Esterase Urine RBC Urine WBC Urine WBC Clumps Ur Squamous Epith Cells Urine Bacteria Micro UA Comment Ur Microscopic Review Urine Culture Comments Urine Opiates Screen Ur Barbiturates Screen Ur Amphetamines Screen U Benzodiazepines Scrn Urine Cocaine Screen U Cannabinoids Screen Serum Alcohol 08/07/18 08/07/18 08/07/18 19:58 21:20 21:20 WBC RBC Hgb Hct MCV MCH MCHC RDW Plt Count MPV Neut % (Auto) Lymph % (Auto) [place] % (Auto) Eos % (Auto) Baso % (Auto) Neut # (Auto) Lymph # (Auto) [place] # (Auto) Eos # (Auto) Baso # (Auto) WBC Differential Differential Comment PT INR APTT Sodium Potassium Chloride Carbon Dioxide Anion Gap BUN Creatinine Estimated GFR POC Glucose Random Glucose Calcium Total Bilirubin AST ALT Alkaline Phosphatase Troponin I Total Protein Albumin Urine Color Yellow Urine Clarity Hazy H Urine pH 5.0 Ur Specific [place] 1.006 Urine Protein Negative Urine Glucose (UA) Negative Urine Ketones Negative Urine Occult Blood Negative Urine Nitrate Negative Urine Bilirubin Negative Urine Urobilinogen Less than 2 Ur Leukocyte Esterase Small H Urine RBC 1 Urine WBC 10 H Urine WBC Clumps Rare H Ur Squamous Epith Cells <1 Urine Bacteria Occasional H Micro UA Comment Culture indicated Ur Microscopic Review Not Reportable Urine Culture Comments Culture indicated Urine Opiates Screen Neg Ur Barbiturates Screen Neg Ur Amphetamines Screen Neg U Benzodiazepines Scrn Pos H Urine Cocaine Screen Neg U Cannabinoids Screen Neg Serum Alcohol 36 H 08/07/18 23:29 WBC RBC Hgb Hct MCV MCH MCHC RDW Plt Count MPV Neut % (Auto) Lymph % (Auto) [place] % (Auto) Eos % (Auto) Baso % (Auto) Neut # (Auto) Lymph # (Auto) [place] # (Auto) Eos # (Auto) Baso # (Auto) WBC Differential Differential Comment PT INR APTT Sodium Potassium Chloride Carbon Dioxide Anion Gap BUN Creatinine Estimated GFR POC Glucose 101 Random Glucose Calcium Total Bilirubin AST ALT Alkaline Phosphatase Troponin I Total Protein Albumin Urine Color Urine Clarity Urine pH Ur Specific [place] Urine Protein Urine Glucose (UA) Urine Ketones Urine Occult Blood Urine Nitrate Urine Bilirubin Urine Urobilinogen Ur Leukocyte Esterase Urine RBC Urine WBC Urine WBC Clumps Ur Squamous Epith Cells Urine Bacteria Micro UA Comment Ur Microscopic Review Urine Culture Comments Urine Opiates Screen Ur Barbiturates Screen Ur Amphetamines Screen U Benzodiazepines Scrn Urine Cocaine Screen U Cannabinoids Screen Serum Alcohol - Imaging Impressions Chest X-Ray 08/07/18 19:15 CONCLUSION: No evidence of acute cardiopulmonary disease. Head CT 08/07/18 19:15 CONCLUSION: Negative noncontrast head CT. . Caprini VTE Risk Assessment Caprini VTE Risk Assessment: Moderate/High Risk (score >= 2) Caprini Risk Assessment Model: Point Value = 1 Point Value = 2 Point Value = 3 Point Value = 5 Age 41-60 Minor surgery BMI > 25 kg/m2 Swollen legs Varicose veins or History of unexplained or recurrent spontaneous Oral contraceptives or hormone replacement Sepsis (< 1 month) Serious lung disease, including pneumonia (< 1 month) Abnormal pulmonary function Acute myocardial infarction Congestive heart failure (< 1 month) History of inflammatory bowel disease Medical patient at bed rest Age 61-74 Arthroscopic surgery Major open surgery (> 45 min) Laparoscopic surgery (> 45 min) Malignancy Confined to bed (> 72 hours) Immobilizing plaster cast Central venous access Age >= 75 History of VTE Family history of VTE Factor V Leiden Prothrombin [id number] Lupus anticoagulant Anticardiolipin antibodies Elevated serum homocysteine Heparin-induced thrombocytopenia Other congenital or acquired thrombophilia Stroke (< 1 month) Elective arthroplasty Hip, pelvis, or leg fracture Acute spinal cord injury (< 1 month) Prophylaxis Regimen: Total Risk Factor Score Risk Level Prophylaxis Regimen 0-1 Low Early ambulation 2 Moderate Order ONE of the following: *Sequential Compression Device (SCD) *Heparin 5000 units SQ BID 3-4 Higher Order ONE of the following medications: *Heparin 5000 units SQ TID *Enoxaparin/Lovenox 40 mg SQ daily (WT < 150 kg, CrCl > 30 mL/min) *Enoxaparin/Lovenox 30 mg SQ daily (WT < 150 kg, CrCl > 10-29 mL/min) *Enoxaparin/Lovenox 30 mg SQ BID (WT < 150 kg, CrCl > 30 mL/min) AND/OR *Sequential Compression Device (SCD) 5 or more Highest Order ONE of the following medications: *Heparin 5000 units SQ TID (Preferred with Epidurals) *Enoxaparin/Lovenox 40 mg SQ daily (WT < 150 kg, CrCl > 30 mL/min) *Enoxaparin/Lovenox 30 mg SQ daily (WT < 150 kg, CrCl > 10-29 mL/min) *Enoxaparin/Lovenox 30 mg SQ BID (WT < 150 kg, CrCl > 30 mL/min) AND *Sequential Compression Device (SCD) Assessment and Plan - Plan Assessment/plan: 1. Altered mental status Unclear etiology Suspect polypharmacy/alcohol Cannot rule out TIA/CVA MRI, carotid ultrasound pending Cannot rule out cardiac event, patient's troponin 0.09 ACS rule out pending; serial troponins/EKGs Initial EKG negative for ischemia, personally reviewed 2. Elevated troponin Plan as above 3. Diabetes mellitus Sliding-scale insulin Monitor blood glucose 4. Neuropathy Holding home gabapentin given altered mental status FEN N.p.o. Electrolytes: Monitor and replete as needed NS at 100 cc/hour Heparin
[2018-08-08] MEDS: Sod Chloride 0.9% Inj 1,000 ML IV.CONT SCH ×3 (00:21→22:55)
[2018-08-08 03:11] LABS: Baso % (Auto) 0.8 % (0.0-2.0); Eos # (Auto) 0.2 th/mm3 (0.0-0.4); Eos % (Auto) 3.3 % (0.0-4.0); Hematocrit 41.8 % (35.0-46.0); Lymph # (Auto) 1.5 th/mm3 (1.0-4.8); Lymph % (Auto) 27.8 % (9.0-44.0); Mean Corpuscular HGB Conc 33.5 % (32.0-36.0); Mean Corpuscular Hemoglobin 30.8 pg (27.0-34.0); Mean Platelet Volume 10.7 fL (7.0-11.0); Mono # (Auto) 0.5 th/mm3 (0.0-0.9); Mono % (Auto) 10.1 % (0.0-8.0); Neut # (Auto) 3.1 th/mm3 (1.8-7.7); Platelet Count 204 th/mm3 (150-450); Red Blood Count 4.54 mil/mm3 (4.00-5.30); Red Cell Distribution Width 13.4 % (11.6-17.2); White Blood Count 5.4 th/mm3 (4.0-11.0)
[2018-08-08 03:26] LABS: Calcium 8.4 mg/dL (8.5-10.1); Carbon Dioxide 27.7 meq/L (21.0-32.0); Potassium 4.1 meq/L (3.5-5.1)
[2018-08-08 03:30] LABS: Troponin I 0.08 ng/mL (0.02-0.05)
[2018-08-08] MEDS: Heparin - SQ 10,000 UNITS/ML Vial SQ SCH ×2 (05:19→15:09)
[2018-08-08 06:03] VITALS: RESP 18
--- NOTE | 2018-08-08 07:54 | ECG ---
Date Performed: 08/07/2018 Time Performed: 18:45:03 PTAGE: 68 years EKG: Sinus rhythm NORMAL ECG PREVIOUS TRACING : 09/21/2010 21.04 Since the previous tracing, no significant change noted DOCTOR: Bruce Padron Interpretating Date/Time 08/08/2018 07:52:28
--- NOTE | 2018-08-08 08:12 | P.PN ---
Subjective Interval history: Follow up on patient with encephalopathy/AMS, elevated troponins. Patient seen and examined. Patient reports episode last night of right sided facial numbness , inability to talk and right sided weakness in the upper and lower extremity, resolved. She denies any associated chest pain or shortness of breath. She denies any fever or chills. She denies any nausea, vomiting or abdominal pain. She reports hx of loop recorder placed 6 years ago and removed three years ago with no significant findings. Physical Exam Vital signs: Vital Signs 08/07/18 18:20 08/07/18 22:18 08/07/18 23:10 Temperature 98.2 F Pulse Rate 61 64 Respiratory Rate 20 16 Blood Pressure 146/70 H 191/72 H 196/81 H Pulse Oximetry 96 98 08/08/18 01:40 08/08/18 04:00 Temperature 97.6 F 97.9 F Pulse Rate 52 L 62 Respiratory Rate 18 18 Blood Pressure 189/83 H 131/65 Pulse Oximetry 96 92 L Intake & Output 08/07/18 08/08/18 08/08/18 18:59 06:59 18:59 Intake Total 500 / 500 Balance 500 / 500 Weight 117.934 kg 91.6 kg Intake: IV 500 / 500 NS Inj 500 ML @ Wide Open IV. 500 / 500 SIG BOLUS YASMIN Rx#:[id number] Other: # Voids 1 Weight On Admission 91.6 kg Narrative: GENERAL: WDWN obese female patient, INAD. Awake and alert. SKIN: Warm and dry. HEAD: Atraumatic. Normocephalic. EYES: Pupils equal and round. No scleral icterus. No injection or drainage. ENT: No nasal bleeding or discharge. Mucous membranes pink and moist. NECK: Trachea midline. CARDIOVASCULAR: Regular rate and rhythm. No murmur appreciated. RESPIRATORY: No accessory muscle use. Clear to auscultation. Breath sounds equal bilaterally. GASTROINTESTINAL: Abdomen soft, non-tender, nondistended. +BS. MUSCULOSKELETAL: Extremities without clubbing, cyanosis, or edema. No obvious deformities. NEUROLOGICAL: Awake and alert. No obvious cranial nerve deficits. Motor grossly within normal limits. Able to move all extremities spontaneously. Normal speech. PSYCHIATRIC: Appropriate mood and affect; insight and judgment normal. Results - Labs CBC & Chem 7: 08/08/18 02:31 09/14/18 02:31 Laboratory Results - last 24 hr 08/07/18 08/07/18 08/07/18 19:58 19:58 19:58 WBC 4.4 RBC 4.48 Hgb 13.7 Hct 41.8 MCV 93.4 MCH 30.6 MCHC 32.8 RDW 13.5 Plt Count 205 MPV 10.3 Neut % (Auto) 56.1 Lymph % (Auto) 31.0 [place] % (Auto) 9.4 H Eos % (Auto) 3.0 Baso % (Auto) 0.5 Neut # (Auto) 2.5 Lymph # (Auto) 1.4 [place] # (Auto) 0.4 Eos # (Auto) 0.1 Baso # (Auto) 0.0 WBC Differential . Differential Comment Auto diff final PT 10.5 INR 1.0 APTT 23.1 L Sodium 146 H Potassium 3.9 Chloride 111 H Carbon Dioxide 27.4 Anion Gap 8 BUN 17 Creatinine 1.00 Estimated GFR 55 L POC Glucose Random Glucose 87 Calcium 8.4 L Total Bilirubin 0.2 AST 14 L ALT 17 Alkaline Phosphatase 80 Total Creatine Kinase Troponin I 0.09 H Total Protein 6.4 Albumin 3.2 L Urine Color Urine Clarity Urine pH Ur Specific [place] Urine Protein Urine Glucose (UA) Urine Ketones Urine Occult Blood Urine Nitrate Urine Bilirubin Urine Urobilinogen Ur Leukocyte Esterase Urine RBC Urine WBC Urine WBC Clumps Ur Squamous Epith Cells Urine Bacteria Micro UA Comment Ur Microscopic Review Urine Culture Comments Urine Opiates Screen Ur Barbiturates Screen Ur Amphetamines Screen U Benzodiazepines Scrn Urine Cocaine Screen U Cannabinoids Screen Serum Alcohol 08/07/18 08/07/18 08/07/18 19:58 21:20 21:20 WBC RBC Hgb Hct MCV MCH MCHC RDW Plt Count MPV Neut % (Auto) Lymph % (Auto) [place] % (Auto) Eos % (Auto) Baso % (Auto) Neut # (Auto) Lymph # (Auto) [place] # (Auto) Eos # (Auto) Baso # (Auto) WBC Differential Differential Comment PT INR APTT Sodium Potassium Chloride Carbon Dioxide Anion Gap BUN Creatinine Estimated GFR POC Glucose Random Glucose Calcium Total Bilirubin AST ALT Alkaline Phosphatase Total Creatine Kinase Troponin I Total Protein Albumin Urine Color Yellow Urine Clarity Hazy H Urine pH 5.0 Ur Specific [place] 1.006 Urine Protein Negative Urine Glucose (UA) Negative Urine Ketones Negative Urine Occult Blood Negative Urine Nitrate Negative Urine Bilirubin Negative Urine Urobilinogen Less than 2 Ur Leukocyte Esterase Small H Urine RBC 1 Urine WBC 10 H Urine WBC Clumps Rare H Ur Squamous Epith Cells <1 Urine Bacteria Occasional H Micro UA Comment Culture indicated Ur Microscopic Review Not Reportable Urine Culture Comments Culture indicated Urine Opiates Screen Neg Ur Barbiturates Screen Neg Ur Amphetamines Screen Neg U Benzodiazepines Scrn Pos H Urine Cocaine Screen Neg U Cannabinoids Screen Neg Serum Alcohol 36 H 08/07/18 08/08/18 08/08/18 23:29 02:04 02:31 WBC 5.4 RBC 4.54 Hgb 14.0 Hct 41.8 MCV 92.0 MCH 30.8 MCHC 33.5 RDW 13.4 Plt Count 204 MPV 10.7 Neut % (Auto) 58.0 Lymph % (Auto) 27.8 [place] % (Auto) 10.1 H Eos % (Auto) 3.3 Baso % (Auto) 0.8 Neut # (Auto) 3.1 Lymph # (Auto) 1.5 [place] # (Auto) 0.5 Eos # (Auto) 0.2 Baso # (Auto) 0.0 WBC Differential . Differential Comment Auto diff final PT INR APTT Sodium Potassium Chloride Carbon Dioxide Anion Gap BUN Creatinine Estimated GFR POC Glucose 101 112 H Random Glucose Calcium Total Bilirubin AST ALT Alkaline Phosphatase Total Creatine Kinase Troponin I Total Protein Albumin Urine Color Urine Clarity Urine pH Ur Specific [place] Urine Protein Urine Glucose (UA) Urine Ketones Urine Occult Blood Urine Nitrate Urine Bilirubin Urine Urobilinogen Ur Leukocyte Esterase Urine RBC Urine WBC Urine WBC Clumps Ur Squamous Epith Cells Urine Bacteria Micro UA Comment Ur Microscopic Review Urine Culture Comments Urine Opiates Screen Ur Barbiturates Screen Ur Amphetamines Screen U Benzodiazepines Scrn Urine Cocaine Screen U Cannabinoids Screen Serum Alcohol 08/08/18 08/08/18 02:31 05:28 WBC RBC Hgb Hct MCV MCH MCHC RDW Plt Count MPV Neut % (Auto) Lymph % (Auto) [place] % (Auto) Eos % (Auto) Baso % (Auto) Neut # (Auto) Lymph # (Auto) [place] # (Auto) Eos # (Auto) Baso # (Auto) WBC Differential Differential Comment PT INR APTT Sodium 146 H Potassium 4.1 Chloride 111 H Carbon Dioxide 27.7 Anion Gap 7 BUN 14 Creatinine 0.92 Estimated GFR 61 L POC Glucose 101 Random Glucose 98 Calcium 8.4 L Total Bilirubin AST ALT Alkaline Phosphatase Total Creatine Kinase 38 Troponin I 0.08 H Total Protein Albumin Urine Color Urine Clarity Urine pH Ur Specific [place] Urine Protein Urine Glucose (UA) Urine Ketones Urine Occult Blood Urine Nitrate Urine Bilirubin Urine Urobilinogen Ur Leukocyte Esterase Urine RBC Urine WBC Urine WBC Clumps Ur Squamous Epith Cells Urine Bacteria Micro UA Comment Ur Microscopic Review Urine Culture Comments Urine Opiates Screen Ur Barbiturates Screen Ur Amphetamines Screen U Benzodiazepines Scrn Urine Cocaine Screen U Cannabinoids Screen Serum Alcohol - Imaging Impressions Chest X-Ray 08/07/18 19:15 CONCLUSION: No evidence of acute cardiopulmonary disease. Head CT 08/07/18 19:15 CONCLUSION: Negative noncontrast head CT. . Assessment and Plan - Plan 68-year-old female with past medical history significant for type 1 diabetes mellitus, neuropathy and history of frequent UTIs presents to the emergency department for the evaluation of altered mental status and hypotension. Encephalopathy/Altered mental status Unclear etiology, suspect polypharmacy/alcohol. UDS + benzodiazepines. Serum EtOH 36. Cannot rule out TIA/CVA 08/08 patient reports episode of right-sided facial numbness, inability to speak and right upper and lower extremity weakness last night Unable to have MRI Carotid US neg Echo 55-60% Consult Neurology, appreciate assistance neuro checks ASA and statin daily - not on either at home check A1c, TSH, lipid profile fall and seizure precautions Elevated troponin ACS rule out pending; serial troponins/EKGs Initial EKG negative for ischemia Consult Cardiology, appreciate assistance continuous cardiac monitoring UTI UCX + gram neg d/c po Keflex start IV Rocephin await final UCX results Diabetes mellitus Sliding-scale insulin Monitor blood glucose Neuropathy Holding home gabapentin given altered mental status DVT prophylaxis SCD/CHRISTIE hose Code Status: FULL Discussed Condition With: patient, nursing staff, Dr. Pearce Discharge Planning: Not ready for discharge
--- NOTE | 2018-08-08 11:47 | US ---
EXAM DATE: 08/08/2018 11:36 AM EDT AGE/SEX: 68 years / Female INDICATIONS: Transient ischemic attack. CLINICAL DATA: This is the patient's initial encounter. Patient reports that signs and symptoms have been present for 1 day and indicates a pain score of 0/10. MEDICAL/SURGICAL HISTORY: Hypertension. Diabetes. Neuropathy. Cholecystectomy. Gastric bypass . Tonsillectomy. Carpal tunnel surgery. Shoulder surgery. COMPARISON: No prior exams available for comparison. VELOCITY PARAMETERS: ICA/CCA Ratio: Right 1.2 , Left 1.4 ICA: Right 88 cm/sec, Left 104 cm/sec CCA: Right 74 cm/sec, Left 74 cm/sec ECA: Right 120 cm/sec, Left 75 cm/sec Vertebral: Right 56 cm/sec antegrade, Left 86 cm/sec antegrade FINDINGS: Right Carotid: Mild arteriosclerotic plaque is visualized.The waveforms are within normal limits. Left Carotid: Mild arteriosclerotic plaque is visualized. The waveforms are within normal limits. Other: None. CONCLUSION: 1. Right Internal Carotid Artery: No significant stenosis; mild atherosclerotic plaque is visualized . 2. Left Internal Carotid Artery: No significant stenosis; mild atherosclerotic plaque is visualized. 3. Antegrade flow both vertebral arteries. Electronically signed by: Cy Brown MD 08/08/2018 11:46 AM EDT
[2018-08-08] MEDS: Insulin NovoLOG Aspart Correctional Sugar Inj SQ SCH ×3 (12:22→22:51)
--- NOTE | 2018-08-08 13:04 | ECHRPT ---
Indication: a fib flutter CONCLUSIONS Normal left ventricular size. Wall thickness is measured at the upper limits of normal. The left ventricular systolic function is normal with an estimated ejection fraction in the range of 55-60%. The left atrial size is upper limits of normal. Mitral annular calcification is present. Mild thickening of the mitral valve leaflets. Trace mitral valve regurgitation. Aortic valve sclerosis is present. There is trace tricuspid valve regurgitation. The estimated pulmonary arterial pressure is 41 mmHg. BP: / HR: Rhythm: MEASUREMENTS (Male / Female) Normal Values Technical Quality: 2D ECHO LV Diastolic Diameter PLAX 4.1 cm 4.2 - 5.9 / 3.9 - 5.3 cm LV Systolic Diameter PLAX 2.7 cm IVS Diastolic Thickness 1.3 cm 0.6 - 1.0 / 0.6 - 0.9 cm LVPW Diastolic Thickness 1.4 cm 0.6 - 1.0 / 0.6 - 0.9 cm LV Relative Wall Thickness 0.7 RV Internal Dim ED PLAX 2.9 cm LVOT Diameter 1.9 cm Aortic Root Diameter 2.9 cm LA Systolic Diameter LX 4.1 cm 3.0 - 4.0 / 2.7 - 3.8 cm LV Ejection Fraction MOD 4C 71.3 % LV Ejection Fraction 4C AL 72.2 % M-MODE Aortic Root Diameter MM 3.1 cm LA Systolic Diameter MM 4.7 cm LA Ao Ratio MM 1.5 AV Cusp Separation MM 1.9 cm DOPPLER AV Peak Velocity 151.0 cm/s AV Peak Gradient 9.1 mmHg LVOT Peak Velocity 87.0 cm/s LVOT Peak Gradient 3.0 mmHg AV Area Cont Eq pk 1.6 cm Mitral E Point Velocity 82.1 cm/s Mitral A Point Velocity 116.0 cm/s Mitral E to A Ratio 0.7 LV E' Lateral Velocity 5.6 cm/s Mitral E to LV E' Lateral Ratio 14.8 LV E' Septal Velocity 5.0 cm/s Mitral E to LV E' Septal Ratio 16.5 TR Peak Velocity 276.0 cm/s TR Peak Gradient 30.5 mmHg Right Atrial Pressure 10.0 mmHg Pulmonary Artery Systolic Pressu 40.5 mmHg Right Ventricular Systolic Press 40.5 mmHg PV Peak Velocity 116.0 cm/s PV Peak Gradient 5.4 mmHg FINDINGS LEFT VENTRICLE Normal left ventricular size. Wall thickness is measured at the upper limits of normal. The left ventricular systolic function is normal with an estimated ejection fraction in the range of 55-60%. RIGHT VENTRICLE Normal right ventricular size and systolic function. LEFT ATRIUM The left atrial size is borderline dilated. RIGHT ATRIUM The right atrial size is normal. ATRIAL SEPTUM Normal atrial septal thickness without atrial level shunting by limited color doppler interrogation. AORTA The aortic root and proximal ascending aorta are normal in size on limited imaging. MITRAL VALVE Mitral annular calcification is present. Mild thickening of the mitral valve leaflets. Trace mitral valve regurgitation. AORTIC VALVE Aortic valve sclerosis is present. TRICUSPID VALVE There is trace tricuspid valve regurgitation. The estimated pulmonary arterial pressure is 41 mmHg. PULMONARY VALVE No pulmonary valve regurgitation or stenosis. VESSELS The inferior vena cava is normal in size. PERICARDIUM No pericardial effusion. Adriano Muñiz MD (Electronically Signed) Final Date:08 August 2018 13:03
[2018-08-08 13:23] LABS: Troponin I 0.07 ng/mL (0.02-0.05)
--- NOTE | 2018-08-08 17:12 | MB ---
cc: Adriano Muñiz MD DATE: 08/08/2018 REASON FOR CONSULTATION: Evaluation of increased troponin and a question of cerebrovascular accident. HISTORY OF PRESENT ILLNESS: This is a 68-year-old woman who has been diabetic for 50 years, who comes in with altered mental status. The patient was found to be driving erratically in her neighborhood, and when the police arrived, she was unconscious but arousable with a low blood pressure of 70/30. Blood pressure responded to giving her a liter of fluids. She does not remember what happened. She did have a glass of wine before the episode. Her medications I am not completely certain of. She is listed as being on trazodone and Ambien; however, she says the trazodone has been stopped. I discovered she is also on gabapentin 300 mg in evening and 100 mg in the morning and she did say she took it that morning. She was just started on Lexapro, but says she did take it that morning. Her brought up tramadol, but the patient says she does not like to take that because it causes constipation. She also takes Xanax 0.5 b.i.d. She did not volunteer that until I specifically asked if she was taking lorazepam or Xanax and then she remembered that she was taking Xanax. We do not have a printed list of her medications. Apparently, she does not have that with her. She also has sleep apnea and sees Dr. Greenberg and was recently told that she was not using it for the required 4 hours a day and she says her mask leaks. She had been waiting on a new mask and just got the mask. About 10 years ago, she had syncope. She had a loop recorder for 3 years and it was removed. She has a slightly elevated troponin. She adamantly denies any chest discomfort, chest tightness, chest squeezing or any other symptoms that I can construe as angina. She is not that physically active. She plays cards and plays dominos, but she does do some gardening. PAST MEDICAL HISTORY: Includes hypertension and diabetes. She is off blood pressure medicines. Neuropathy. She has had carpal tunnel surgery release bilaterally. She has a cholecystectomy, bilateral shoulder surgery, gastric bypass, tonsillectomy. Additional past medical history is that she has frequent UTIs and some incontinence and she is going to [facility] and being checked for possible kidney stones. FAMILY HISTORY: Positive for diabetes. SOCIAL HISTORY: She is a nonsmoker. She drinks a glass of red wine daily. REVIEW OF SYSTEMS: Otherwise noncontributory. PHYSICAL EXAMINATION: GENERAL: Shows an obese, pleasant, white female. She is in no acute distress. VITAL SIGNS: Show quite a degree of fluctuation of her blood pressure. HEENT: Unremarkable. NECK: No JVD. No bruits. CHEST: Clear to auscultation. Additional history is she told me she gets asthma when she is exposed to certain environmental causes and she uses an inhaler as needed. CARDIAC: Shows normal S1, S2. Regular rate and rhythm. No murmurs or gallops. ABDOMEN: Obese, soft, nontender. No masses. EXTREMITIES: No clubbing, cyanosis or edema. Pulses are intact. DIAGNOSTIC DATA: EKG shows sinus rhythm with somewhat prominent nonspecific ST-T wave changes. Troponins were 0.09, 0.08 and 0.07. Alcohol level was 39. A CT scan of the head is negative. MRI is pending. Chest x-ray showed no acute disease. Echo shows preserved LV function. IMPRESSION: Altered mental status. Etiology is unclear, but there is certainly a component of polypharmacy and possibly some of that with interaction with alcohol. She has nonspecific ST-T wave changes on her electrocardiogram with a mildly abnormal troponin, but the troponin curve is fairly flat and I am not sure what this means. She was very hypotensive when she was first found. This could be a factor. PLAN: I am going to order a nuclear stress test and use that to guide whether we should do further invasive workup for heart disease. A neurology consult is pending. MD TIFFANY Becerra/liv , 02:52 PM , 03:02 PM
--- NOTE | 2018-08-08 21:55 | MB ---
cc: Alfonso Escobar MD DATE: 08/08/2018 HISTORY OF PRESENT ILLNESS: A 68-year-old, right-handed woman with a history of hypertension, insulin-dependent diabetes, some mild renal insufficiency, protein in her urine, asthma, peptic ulcer disease, basal cell cancer of the skin, panic attacks, depression, anxiety. She does take a baby aspirin a day. She also takes Xanax most every night for the last several weeks for sleep. She takes occasional Tramadol, Tylenol, Lexapro. She never had a seizure. In 2009, she had a syncopal episode with a negative carotid ultrasound, echo and EEG. Yesterday, in the afternoon, she went to a store, [employer] over at [facility], and she does not remember after that where she drove home. She thinks she lost about 2 hours. She says she went to several other stores and then wound up in the middle of the road parked by her house and the police came. She remembers a police coming. No odd smells, tastes or estee vu. Never woken up and wet the bed or bit her tongue. SOCIAL HISTORY: She is not a smoker. She has 1 glass of wine a day. Lives with her and her daughter. FAMILY HISTORY: Positive for cancer in her father. Negative for seizure or stroke. REVIEW OF SYSTEMS: She denied any chest pain or palpitations. She gets an occasional headache. She denies any history of hypercholesterolemia, [place], CABG, stent, angioplasty, atrial fibrillation, Coumadin. She had a loop recorder placed after the syncopal episode a few years ago, but it was negative and then they took it out. She denies any history of hepatic disease, thyroid disease, lupus, seizure, stroke. According to the chart and her, she seemed to change the story. She may have had a glass of wine before she left and went for the ride and maybe took a benzo at that time. It is a little bit unclear and she changes her history a bit. Also, in the middle of the night about 3 a.m. or so, evidently she woke up and had some slurred speech, which was slightly slurred and a very mild right facial droop and she thought some numbness on the right side. MEDICATIONS AT HOME: 1. Trazodone 50 mg at night. 2. Ambien. 3. Insulin. 4. Lexapro. 5. Xanax. 6. Occasional Tramadol. 7. Tylenol. PHYSICAL EXAMINATION: VITAL SIGNS: Afebrile, 67, 18, 195/84, initially 146/70. NECK: There are no carotid bruits. HEART: Regular rate and rhythm. I do not detect a murmur. NEUROLOGIC: Pupils are equal. Visual ko are full. Extraocular movements intact without nystagmus. Face moves symmetrically, but there is just a hint of a droopiness on the right side of the face, but she moves it symmetrically with normal sensation. Tongue is midline. No drift. Normal strength in the upper and lower extremities bilaterally. DTRs are trace throughout. Toes are downgoing bilaterally. Pinprick is intact throughout. No ataxia on [id number]. Gait steady. Speech is fluent. She is not aphasic. She has a little bit of a dazed look to her, but she says she is thinking sharply. She knew the year and the day of the week. She knew what yesterday was. Calculations are intact. She remembered at first 0/3 words at 1 minute, then 3/3 words at 2 minutes. She looks a bit disheveled. PAST MEDICAL HISTORY: As above. Also, just had 3 days ago a diabetic scanner button placed in the right arm and cannot have an MRI for 6 weeks after that. LABORATORY DATA: CBC is normal. Urine drug screen positive for benzos only. Alcohol level is 36, normal less than 5. UA was with a small amount of leukocyte esterase, 10 white cells. Basic metabolic profile: Glucose 152. Troponin 0.07. CPK negative. Sodium is 146. Creatinine is normal. AST and ALT were normal. Coags were normal. She had an echocardiogram with a normal ejection fraction, left atrium size upper limit of normal, left atrium 47 mm. CAT scan of the brain showed an old left lacunar infarct, small, indistinct. Also, I could not see well as the left temporal horn, but I could on the right. I cannot say there is any definite left temporal lobe edema there. EKG shows sinus rhythm. IMPRESSION: It is possible that she could have had too much to drink and taken some medications. Evidently, she had a low blood pressure of 70/30 when she first arrived. She was found driving erratically. She was unconscious but easily arousable with a low blood pressure. A small complex partial seizure could be considered or just too much intake of alcohol and benzodiazepines could be also considered. She cannot have an MRI at this time. We will order an electroencephalogram. I note her carotid ultrasound here is negative. I would have her hold off driving until further notice. We will check an MRI in 6 weeks as an outpatient. We will check an ammonia level and a few other labs on her and the electroencephalogram. If the electroencephalogram is negative, she could be discharged. I am going to switch her from aspirin to Plavix with waking up with some slurred speech in the middle of the night. They thought she had a little bit of a slight facial droop at the time, and I see that today also. There is just a hint of a facial droop on the right side compared to the left, but she moves it symmetrically and I do not know if that is old or not. It looks like she had a small old lacunar infarct. Cardiology has seen her for a slightly elevated troponin. MD ORVILLE Crook/liv , 06:15 PM , 06:30 PM
[2018-08-08 22:00] LABS: Free T4 (Free Thyroxine) 0.86 ng/dL (0.76-1.46)
[2018-08-08] MEDS ORDERED: Zolpidem Tartrate 5 MG Tablet PO ONE (23:03)
[2018-08-09] MEDS: Sod Chloride 0.9% Inj 1,000 ML IV.CONT SCH ×2 (05:16→14:23)
[2018-08-09 07:12] LABS: Chol/HDL Ratio 4.12 Ratio; HDL Cholesterol 44.8 mg/dL (40.0-60.0); Thyroid Stimulating Hormone 2.83 uIU/mL (0.358-3.740)
--- NOTE | 2018-08-09 08:52 | P.PNNEU ---
Subjective Subjective Comments: no new co overnoc Active Medications: Active Medications Acetaminophen (Tylenol) 650 mg PO Q4H PRN PRN Reason: Temp > 100.4 Aspirin (Ecotrin) 81 mg PO DAILY [facility] Last Admin: 08/08/18 17:00 Dose: 81 mg Atorvastatin Calcium (Lipitor) 20 mg PO HS [facility] Last Admin: 08/08/18 22:52 Dose: 20 mg Clopidogrel Bisulfate (Plavix) 75 mg PO DAILY [facility] Last Admin: 08/08/18 18:28 Dose: 75 mg Dextrose (D50w Vial) 50 ml IV.PUSH UNSCH PRN PRN Reason: PER HYPOGLYCEMIA PROTOCOL Glucagon (Glucagon Inj) 1 mg OTHER PRN PRN PRN Reason: for Hypoglycemia Protocol Heparin Sodium (Porcine) (Heparin Inj) 5,000 units SQ Q8HR [facility] Last Admin: 08/08/18 15:09 Dose: 5,000 units Sodium Chloride (Ns Inj) 500 mls @ 0 mls/hr IV.SIG BOLUS [facility] Last Infusion: 08/08/18 00:21 Dose: Infused Sodium Chloride (Ns Inj) 1,000 mls @ 50 mls/hr IV.CONT .Q20H [facility] Last Admin: 08/09/18 05:16 Dose: 100 mls/hr Ceftriaxone Sodium 1,000 mg/ (Sodium Chloride) 100 mls @ 200 mls/hr IV.SIG Q24H [facility] Last Infusion: 08/08/18 18:51 Dose: Infused Insulin Aspart (Novolog Insulin Correctional Sugar Inj) 0 unit SQ ACHS [facility]; Protocol Last Admin: 08/08/18 22:51 Dose: Not Given Ondansetron HCl (Zofran Inj) 4 mg IV.PUSH Q6H PRN PRN Reason: NAUSEA OR VOMITING Sodium Chloride (Ns Flush) 2 ml IV.FLUSH PRN PRN PRN Reason: FLUSH AFTER USING IV ACCESS Allergies/Adverse Reactions: Allergies Allergy/AdvReac Type Severity Reaction Status Date / Time No Known Allergies Allergy Unverified 08/07/18 18:32 Physical Exam Vital signs: Vital Signs 08/08/18 09:04 08/08/18 10:07 08/08/18 11:30 Temperature Pulse Rate 64 Respiratory Rate Blood Pressure Pulse Oximetry 95 94 L 08/08/18 12:00 08/08/18 13:06 08/08/18 16:00 Temperature 97.9 F 98.2 F Pulse Rate 66 65 77 Respiratory Rate 18 18 Blood Pressure 184/78 H 195/84 H Pulse Oximetry 94 L 95 08/08/18 20:00 08/08/18 23:42 08/09/18 04:00 Temperature 98.5 F 97.8 F 97.6 F Pulse Rate 63 65 60 Respiratory Rate 18 18 18 Blood Pressure 175/76 H 200/95 H 127/68 Pulse Oximetry 96 98 95 08/09/18 08:00 Temperature 98 F Pulse Rate 61 Respiratory Rate 18 Blood Pressure 214/91 H Pulse Oximetry 94 L Intake & Output 08/08/18 08/09/18 08/09/18 18:59 06:59 18:59 Intake Total 1100 / 1100 Balance 1100 / 1100 Weight 97 kg Intake: IV 1100 / 1100 NS Inj 1,000 ML @ 100 mls/hr IV 1000 / 1000 .CONT .Q10H [facility] Rx#:[id number] Rocephin Inj 1,000 MG In NS Inj 100 / 100 100 ML @ 200 mls/hr IV.SIG Q24H [facility] Rx#:[id number] Other: # Voids 3 3 # Bowel Movements 1 Narrative: awake vff face sym 5/5 t/o toes down follows all commands well nl gait Objective Laboratory Results - last 24 hr 08/07/18 08/08/18 08/08/18 21:20 09:08 11:46 ESR POC Glucose 96 108 Total Creatine Kinase Troponin I Triglycerides Cholesterol LDL Cholesterol, Calc HDL Cholesterol Cholesterol/HDL Ratio Vitamin B12 TSH Free T4 Urine Color Yellow Urine Clarity Hazy H Urine pH 5.0 Ur Specific [place] 1.006 Urine Protein Negative Urine Glucose (UA) Negative Urine Ketones Negative Urine Occult Blood Negative Urine Nitrate Negative Urine Bilirubin Negative Urine Urobilinogen Less than 2 Ur Leukocyte Esterase Small H Urine RBC 1 Urine WBC 10 H Urine WBC Clumps Rare H Ur Squamous Epith Cells <1 Urine Bacteria Occasional H Micro UA Comment Culture indicated Urine Culture Comments Culture indicated 08/08/18 08/08/18 08/08/18 12:15 16:37 18:01 ESR POC Glucose 230 H 152 H Total Creatine Kinase 30 Troponin I 0.07 H Triglycerides Cholesterol LDL Cholesterol, Calc HDL Cholesterol Cholesterol/HDL Ratio Vitamin B12 TSH Free T4 Urine Color Urine Clarity Urine pH Ur Specific [place] Urine Protein Urine Glucose (UA) Urine Ketones Urine Occult Blood Urine Nitrate Urine Bilirubin Urine Urobilinogen Ur Leukocyte Esterase Urine RBC Urine WBC Urine WBC Clumps Ur Squamous Epith Cells Urine Bacteria Micro UA Comment Urine Culture Comments 08/08/18 08/08/18 08/08/18 20:30 20:30 22:49 ESR 12 POC Glucose 108 Total Creatine Kinase Troponin I Triglycerides Cholesterol LDL Cholesterol, Calc HDL Cholesterol Cholesterol/HDL Ratio Vitamin B12 321 TSH Free T4 0.86 Urine Color Urine Clarity Urine pH Ur Specific [place] Urine Protein Urine Glucose (UA) Urine Ketones Urine Occult Blood Urine Nitrate Urine Bilirubin Urine Urobilinogen Ur Leukocyte Esterase Urine RBC Urine WBC Urine WBC Clumps Ur Squamous Epith Cells Urine Bacteria Micro UA Comment Urine Culture Comments 08/09/18 08/09/18 05:57 07:43 ESR POC Glucose 115 H Total Creatine Kinase Troponin I Triglycerides 238 H Cholesterol 185 LDL Cholesterol, Calc 93 HDL Cholesterol 44.8 Cholesterol/HDL Ratio 4.12 Vitamin B12 TSH 2.830 Free T4 Urine Color Urine Clarity Urine pH Ur Specific [place] Urine Protein Urine Glucose (UA) Urine Ketones Urine Occult Blood Urine Nitrate Urine Bilirubin Urine Urobilinogen Ur Leukocyte Esterase Urine RBC Urine WBC Urine WBC Clumps Ur Squamous Epith Cells Urine Bacteria Micro UA Comment Urine Culture Comments Microbiology 08/07/18 21:20 Urine Culture - Preliminary Clean Catch Urine gram negative rods Review/Management - Review/Management Plan: imp labs ok fu nh3 echo neg fu eeg and nh3 and needs holter if eeg neg and holter done and cleared by cards could dc neurowise on plavix probably drank too much
[2018-08-09] MEDS ORDERED: Regadenoson Inj 0.4 MG/5 ML Syringe IV.PUSH ONE (10:12)
[2018-08-09] MEDS: Insulin NovoLOG Aspart Correctional Sugar Inj SQ SCH ×4 (10:29→21:48)
--- NOTE | 2018-08-09 12:01 | NM ---
EXAM DATE: 08/09/2018 11:47 AM EDT AGE/SEX: 68 years / Female INDICATIONS:. . Syncope, elevated troponins, silent RI. CLINICAL DATA: This is the patient's initial encounter. Patient reports that signs and symptoms have been present for 1 day and indicates a pain score of 0/10. MEDICAL/SURGICAL HISTORY: Diabetes. Hypertension. Neuropathy. Cholecystectomy. Gastric bypas s. Tonsillectomy. History of carpal tunnel surgery and shoulder surgery. COMPARISON: No prior exams available for comparison. DOSE: 8.7 mCi Tc 99m Myoview at rest 25.4 mCi [id number] at stress 0.4 mg Lexiscan STRESS SYMPTOMS: Shortness of breath. EJECTION FRACTION: 43 % TECHNIQUE: The patient underwent pharmacologic stress with infusion of prescribed dose. Continuous ECG tracing was monitored during stress. Gated SPECT imaging was performed after stress and conventi onal SPECT imaging was performed at rest. The examination was performed on a SPECT/CT scanner, both attenuation and non-corrected datasets were reviewed. FINDINGS: Distribution: The maximum perfused segment at stress is in the anterior lateral wall. Perfusion Study: There is a mild to moderate fixed defect of the inferolateral wall. No definite re versible perfusion defects are identified to suggest stress-induced myocardial ischemia. Fixed apica l defect. Gated Study: Mild hypokinesis seen. The ejection fraction is calculated at 43%. RISK CATEGORY: Intermediate (1-3 % Annual Mortality Rate) CONCLUSION: 1. No definite reversible perfusion defects are identified at this time. 2. Ejection fraction of 43%. Electronically signed by: Shorty Calderon MD 08/09/2018 11:59 AM EDT
--- NOTE | 2018-08-09 12:45 | P.PN ---
Subjective Interval history: Follow up on patient with encephalopathy/AMS, elevated troponins. Patient seen and examined. Patient states she slept well last night. She denies any complaints of facial numbness, dizziness, headache or weakness. She denies any chest pain or shortness of breath. She denies any nausea, vomiting or abdominal pain. Physical Exam Vital signs: Vital Signs 08/08/18 13:06 08/08/18 16:00 08/08/18 20:00 Temperature 98.2 F 98.5 F Pulse Rate 65 77 63 Respiratory Rate 18 Blood Pressure 195/84 H 175/76 H Pulse Oximetry 95 96 08/08/18 23:42 08/09/18 04:00 08/09/18 08:00 Temperature 97.8 F 97.6 F 98 F Pulse Rate 65 60 61 Respiratory Rate 18 18 18 Blood Pressure 200/95 H 127/68 214/91 H Pulse Oximetry 98 95 94 L 08/09/18 10:21 Temperature Pulse Rate Respiratory Rate Blood Pressure Pulse Oximetry 94 L Intake & Output 08/08/18 08/09/18 08/09/18 18:59 06:59 18:59 Intake Total 1100 / 1100 Balance 1100 / 1100 Weight 97 kg Intake: IV 1100 / 1100 NS Inj 1,000 ML @ 100 mls/hr IV 1000 / 1000 .CONT .Q10H [facility] Rx#:[id number] Rocephin Inj 1,000 MG In NS Inj 100 / 100 100 ML @ 200 mls/hr IV.SIG Q24H [facility] Rx#:[id number] Other: # Voids 3 3 # Bowel Movements 1 Narrative: GENERAL: WDWN obese female patient, INAD. Lying in bed. Awake and alert. Appears comfortable. SKIN: Warm and dry. HEENT: Atraumatic. Normocephalic. Pupils equal and round. No scleral icterus. No injection or drainage. No nasal bleeding or discharge. Mucous membranes pink and moist. NECK: Trachea midline. CARDIOVASCULAR: Regular rate and rhythm. No murmur appreciated. RESPIRATORY: No accessory muscle use. Clear to auscultation. Breath sounds equal bilaterally. GASTROINTESTINAL: Abdomen soft, non-tender, nondistended. +BS. MUSCULOSKELETAL: Extremities without clubbing, cyanosis, or edema. No obvious deformities. NEUROLOGICAL: Awake and alert. No obvious cranial nerve deficits. Motor grossly within normal limits. Able to move all extremities spontaneously. Normal speech. PSYCHIATRIC: Appropriate mood and affect; insight and judgment normal. Results - Labs CBC & Chem 7: 08/08/18 02:31 08/08/18 02:31 Laboratory Results - last 24 hr 08/07/18 08/08/18 08/08/18 21:20 12:15 16:37 ESR POC Glucose 230 H Total Creatine Kinase 30 Troponin I 0.07 H Triglycerides Cholesterol LDL Cholesterol, Calc HDL Cholesterol Cholesterol/HDL Ratio Vitamin B12 TSH Free T4 Urine Color Yellow Urine Clarity Hazy H Urine pH 5.0 Ur Specific [place] 1.006 Urine Protein Negative Urine Glucose (UA) Negative Urine Ketones Negative Urine Occult Blood Negative Urine Nitrate Negative Urine Bilirubin Negative Urine Urobilinogen Less than 2 Ur Leukocyte Esterase Small H Urine RBC 1 Urine WBC 10 H Urine WBC Clumps Rare H Ur Squamous Epith Cells <1 Urine Bacteria Occasional H Micro UA Comment Culture indicated Urine Culture Comments Culture indicated 08/08/18 08/08/18 08/08/18 18:01 20:30 20:30 ESR 12 POC Glucose 152 H Total Creatine Kinase Troponin I Triglycerides Cholesterol LDL Cholesterol, Calc HDL Cholesterol Cholesterol/HDL Ratio Vitamin B12 321 TSH Free T4 0.86 Urine Color Urine Clarity Urine pH Ur Specific [place] Urine Protein Urine Glucose (UA) Urine Ketones Urine Occult Blood Urine Nitrate Urine Bilirubin Urine Urobilinogen Ur Leukocyte Esterase Urine RBC Urine WBC Urine WBC Clumps Ur Squamous Epith Cells Urine Bacteria Micro UA Comment Urine Culture Comments 08/08/18 08/09/18 08/09/18 22:49 05:57 07:43 ESR POC Glucose 108 115 H Total Creatine Kinase Troponin I Triglycerides 238 H Cholesterol 185 LDL Cholesterol, Calc 93 HDL Cholesterol 44.8 Cholesterol/HDL Ratio 4.12 Vitamin B12 TSH 2.830 Free T4 Urine Color Urine Clarity Urine pH Ur Specific [place] Urine Protein Urine Glucose (UA) Urine Ketones Urine Occult Blood Urine Nitrate Urine Bilirubin Urine Urobilinogen Ur Leukocyte Esterase Urine RBC Urine WBC Urine WBC Clumps Ur Squamous Epith Cells Urine Bacteria Micro UA Comment Urine Culture Comments 08/09/18 11:25 ESR POC Glucose 142 H Total Creatine Kinase Troponin I Triglycerides Cholesterol LDL Cholesterol, Calc HDL Cholesterol Cholesterol/HDL Ratio Vitamin B12 TSH Free T4 Urine Color Urine Clarity Urine pH Ur Specific [place] Urine Protein Urine Glucose (UA) Urine Ketones Urine Occult Blood Urine Nitrate Urine Bilirubin Urine Urobilinogen Ur Leukocyte Esterase Urine RBC Urine WBC Urine WBC Clumps Ur Squamous Epith Cells Urine Bacteria Micro UA Comment Urine Culture Comments Microbiology 08/07/18 21:20 Clean Catch Urine Urine Culture - Final Klebsiella pneumoniae - Imaging Impressions Myocardial Perfusion Scan Nuc Med 08/09/18 00:00 CONCLUSION: 1. No definite reversible perfusion defects are identified at this time. 2. Ejection fraction of 43%. Assessment and Plan - Plan 68-year-old female with past medical history significant for type 1 diabetes mellitus, neuropathy and history of frequent UTIs presents to the emergency department for the evaluation of altered mental status and hypotension. Encephalopathy/Altered mental status Unclear etiology, suspect polypharmacy/alcohol. UDS + benzodiazepines. Serum EtOH 36. Cannot rule out TIA/CVA 08/08 patient reports episode of right-sided facial numbness, inability to speak and right upper and lower extremity weakness last night Unable to have MRI Carotid US neg Echo 55-60% Neurology following, appreciate assistance. If EEG neg, holter done and cleared by Cardiology may be discharged from neuro standpoint. Follow-up neurology as outpatient. Will need to have MRI done as outpatient in 6 weeks. Started on Plavix. Hold off on driving until further notice. Continue on Plavix neuro checks ASA and statin daily - not on either at home fall and seizure precautions f/u on ammonia level Elevated troponin Cardiology following, appreciate assistance. Lexiscan completed showing fixed defect of the inferior lateral wall, no definite reversible perfusion defects. continuous cardiac monitoring UTI UCX + Klebsiella, pansensitive DC IV Rocephin Change to Macrobid BID Hypertriglyceridemia Tg 238 Continue on statin therapy Diabetes mellitus Sliding-scale insulin Monitor blood glucose Neuropathy Holding home gabapentin given altered mental status DVT prophylaxis SCD/CHRISTIE hose Discharge Planning: Not ready for discharge
--- NOTE | 2018-08-09 12:56 | P.DS ---
Date of admission: 08/07/18 22:16 Primary care physician: Queta Bell DO Attending physician on discharge: Bonifacio Pearce Anticipated date of discharge: 08/09/18 Brief History from admission: 68-year-old female with past medical history significant for type 1 diabetes mellitus, neuropathy and history of frequent UTIs presents to the emergency department for the evaluation of altered mental status and hypotension. Per EMS , the police were called by a neighbor to check on the patient who was driving erratically in her neighborhood. When the police arrived on the scene the patient was unconscious but easily arousable in her car in front of her house with the car door open. The patient's blood pressure was found to be 70/30. They gave her a 1 L fluid bolus and her blood pressure improved. Blood sugar was 120. The patient states that this morning she was feeling fine without issues. She states she drove to the [email or web address] store. That is the last thing she recalls. She does not recall driving home or arriving at home. Of note, the patient takes Ambien and Xanax and drank a glass of wine prior to leaving to the store. She states the last time she took the Ambien or Xanax was last night before bed. She remains drowsy during her interview. She denies any chest pain or shortness of breath. No abdominal pain. No nausea/no lateralizing signs/symptoms. No fevers/chills. Patient update on day of discharge: Follow up on patient with encephalopathy/AMS, elevated troponins. Patient seen and examined. Patient reports episode last night of right sided facial numbness , inability to talk and right sided weakness in the upper and lower extremity, resolved. She denies any associated chest pain or shortness of breath. She denies any fever or chills. She denies any nausea, vomiting or abdominal pain. She reports hx of loop recorder placed 6 years ago and removed three years ago with no significant findings. DS: Diagnosis - Discharge Diagnosis (1) Encephalopathy acute Status: Acute (2) Elevated troponin Status: Acute (3) Hypertriglyceridemia Status: Acute (4) Urinary tract infection due to Klebsiella species Status: Acute (5) Diabetes Status: Acute DS: Medications - Discharge Medications Prescriptions: aspirin 81 mg PO DAILY #30 tab atorvastatin 20 mg PO HS #30 tab clopidogrel [Plavix] 75 mg PO DAILY #30 tab nitrofurantoin monohyd/m-cryst 100 mg PO BIDPC #10 cap DS: Summary Hospital Course: Patient admitted with altered mental status/encephalopathy and hypotension. Reportedly, patient's blood pressure had been 70/30 in the field. During the first night of her hospitalization, patient reported episode of right-sided facial numbness, inability to speak and right-sided weakness of the upper and lower extremity which resolved on its own after several minutes. Patient was seen in consultation by neurology. EEG was ordered as well as ammonia level. Patient was started on Plavix and Lipitor. Patient was advised not to drive until further notice. Patient was also noted to have elevated but flat troponins and was seen in consultation by cardiology. Lexiscan was completed showing fixed defect of the inferior lateral wall, no definite reversible perfusion defects. Holter monitor was placed. Echocardiogram revealed EF of 55 -60%. Carotid ultrasound was negative. Patient was unable to have MRI study due to recent implantation of insulin monitor. EEG results pending at the time of discharge. - Time Spent with Patient Total time spent providing and/or coordinating discharge services: Greater than 30 minutes - Quality: VTE Deep Vein Thrombosis/Pulmonary Embolism Present on Admission: No Exam Vital signs: Vital Signs 08/08/18 13:06 08/08/18 16:00 08/08/18 20:00 Temperature 98.2 F 98.5 F Pulse Rate 65 77 63 Respiratory Rate 18 18 Blood Pressure 195/84 H 175/76 H Pulse Oximetry 95 96 08/08/18 23:42 08/09/18 04:00 08/09/18 08:00 Temperature 97.8 F 97.6 F 98 F Pulse Rate 65 60 61 Respiratory Rate 18 18 18 Blood Pressure 200/95 H 127/68 214/91 H Pulse Oximetry 98 95 94 L 08/09/18 10:21 Temperature Pulse Rate Respiratory Rate Blood Pressure Pulse Oximetry 94 L Intake & Output 08/08/18 08/09/18 08/09/18 18:59 06:59 18:59 Intake Total 1100 / 1100 Balance 1100 / 1100 Weight 97 kg Intake: IV 1100 / 1100 NS Inj 1,000 ML @ 100 mls/hr IV 1000 / 1000 .CONT .Q10H [facility] Rx#:[id number] Rocephin Inj 1,000 MG In NS Inj 100 / 100 100 ML @ 200 mls/hr IV.SIG Q24H [facility] Rx#:[id number] Other: # Voids 3 3 # Bowel Movements 1 Narrative: GENERAL: WDWN obese female patient, INAD. Lying in bed. Awake and alert. Appears comfortable. SKIN: Warm and dry. HEENT: Atraumatic. Normocephalic. Pupils equal and round. No scleral icterus. No injection or drainage. No nasal bleeding or discharge. Mucous membranes pink and moist. NECK: Trachea midline. CARDIOVASCULAR: Regular rate and rhythm. No murmur appreciated. RESPIRATORY: No accessory muscle use. Clear to auscultation. Breath sounds equal bilaterally. GASTROINTESTINAL: Abdomen soft, non-tender, nondistended. +BS. MUSCULOSKELETAL: Extremities without clubbing, cyanosis, or edema. No obvious deformities. NEUROLOGICAL: Awake and alert. No obvious cranial nerve deficits. Motor grossly within normal limits. Able to move all extremities spontaneously. Normal speech. PSYCHIATRIC: Appropriate mood and affect; insight and judgment normal. Results Procedures completed during hospitalization: EXAM DATE: 08/09/2018 11:47 AM EDT AGE/SEX: 68 years / Female INDICATIONS:. . Syncope, elevated troponins, silent ND. CLINICAL DATA: This is the patient's initial encounter. Patient reports that signs and symptoms have been present for 1 day and indicates a pain score of 0/ 10. MEDICAL/SURGICAL HISTORY: Diabetes. Hypertension. Neuropathy. Cholecystectomy. Gastric bypass. Tonsillectomy. History of carpal tunnel surgery and shoulder surgery. COMPARISON: No prior exams available for comparison. DOSE: 8.7 mCi Tc 99m Myoview at rest 25.4 mCi [id number] at stress 0.4 mg Lexiscan STRESS SYMPTOMS: Shortness of breath. EJECTION FRACTION: 43 % TECHNIQUE: The patient underwent pharmacologic stress with infusion of prescribed dose. Continuous ECG tracing was monitored during stress. Gated SPECT imaging was performed after stress and conventional SPECT imaging was performed at rest. The examination was performed on a SPECT/CT scanner, both attenuation and non-corrected datasets were reviewed. FINDINGS: Distribution: The maximum perfused segment at stress is in the anterior lateral wall. Perfusion Study: There is a mild to moderate fixed defect of the inferolateral wall. No definite reversible perfusion defects are identified to suggest stress-induced myocardial ischemia. Fixed apical defect. Gated Study: Mild hypokinesis seen. The ejection fraction is calculated at 43% . RISK CATEGORY: Intermediate (1-3 % Annual Mortality Rate) CONCLUSION: 1. No definite reversible perfusion defects are identified at this time. 2. Ejection fraction of 43%. Electronically signed by: Shorty Calderon MD 08/09/2018 11:59 AM EDT Labs on day of discharge: Labs from last 24 hours 08/09/18 08/09/18 08/09/18 11:25 07:43 05:57 ESR POC Glucose 142 H 115 H Hemoglobin A1c Total Creatine Kinase Troponin I Triglycerides 238 H Cholesterol 185 LDL Cholesterol, Calc 93 HDL Cholesterol 44.8 Cholesterol/HDL Ratio 4.12 Vitamin B12 Methylmalonic Acid TSH 2.830 Free T4 CATHY Screen 08/09/18 08/08/18 08/08/18 05:57 22:49 20:30 ESR POC Glucose 108 Hemoglobin A1c Pending Total Creatine Kinase Troponin I Triglycerides Cholesterol LDL Cholesterol, Calc HDL Cholesterol Cholesterol/HDL Ratio Vitamin B12 Methylmalonic Acid Pending TSH Free T4 CATHY Screen 08/08/18 08/08/18 08/08/18 20:30 20:30 20:30 ESR 12 POC Glucose Hemoglobin A1c Total Creatine Kinase Troponin I Triglycerides Cholesterol LDL Cholesterol, Calc HDL Cholesterol Cholesterol/HDL Ratio Vitamin B12 321 Methylmalonic Acid TSH Free T4 0.86 CATHY Screen Pending 08/08/18 08/08/18 08/08/18 18:01 16:37 12:15 ESR POC Glucose 152 H 230 H Hemoglobin A1c Total Creatine Kinase 30 Troponin I 0.07 H Triglycerides Cholesterol LDL Cholesterol, Calc HDL Cholesterol Cholesterol/HDL Ratio Vitamin B12 Methylmalonic Acid TSH Free T4 CATHY Screen - Impressions ITS Impressions Chest X-Ray 08/07/18 19:15 CONCLUSION: No evidence of acute cardiopulmonary disease. Head CT 08/07/18 19:15 CONCLUSION: Negative noncontrast head CT. . Carotid Doppler Study 08/08/18 00:00 CONCLUSION: 1. Right Internal Carotid Artery: No significant stenosis; mild atherosclerotic plaque is visualized. 2. Left Internal Carotid Artery: No significant stenosis; mild atherosclerotic plaque is visualized. 3. Antegrade flow both vertebral arteries. Myocardial Perfusion Scan Nuc Med 08/09/18 00:00 CONCLUSION: 1. No definite reversible perfusion defects are identified at this time. 2. Ejection fraction of 43%. Discharge Plan - Discharge Disposition Patient Disposition: 01 Discharge Home - Discharge Condition Condition: Stable - Discharge Order Discharge Orders: Discharge Order (Routine); Ordered 08/09/18 Ordered By: Rand Diaz - Discharge Details Anticipated Discharge Date: 08/09/18 Discharge Comment: Discharge pending EEG, ammonia level, PT/OT recommendations - Physicians Team Primary Care Provider: Queta Bell Attending Provider: Bonifacio Pearce Other Providers: Alfonso Hunter MD ; Adriano Muñiz MD
[2018-08-09 13:18] LABS: Hemoglobin A1c 5.9 % (4.3-6.0)
[2018-08-09] MEDS: Nitrofurantoin Monohydrate-Macrocrystal 100 MG Capsule PO SCH (17:15)
--- NOTE | 2018-08-09 22:29 | ECG ---
Date Performed: 08/08/2018 Time Performed: 08:10:03 PTAGE: 68 years EKG: Sinus rhythm NONSPECIFIC ST & T-WAVE ABNORMALITY BORDERLINE ECG PREVIOUS TRACING : 08/07/2018 18.45 DOCTOR: Juan Lockett Interpretating Date/Time 08/09/2018 22:22:20
[2018-08-10] MEDS ORDERED: Zolpidem Tartrate 5 MG Tablet PO ONE (00:37)
--- NOTE | 2018-08-10 07:46 | P.PN ---
Subjective Interval history: Follow up on patient with encephalopathy/AMS, elevated troponins. Patient seen and examined. Patient states she is feeling well. She denies any dizziness, facial numbness, headache or weakness. She denies any chest pain or shortness of breath. She is ready to go home. Physical Exam Vital signs: Vital Signs 08/09/18 08:00 08/09/18 09:00 08/09/18 10:21 Temperature 98 F Pulse Rate 61 59 L Respiratory Rate 18 Blood Pressure 214/91 H Pulse Oximetry 94 L 94 L 08/09/18 12:00 08/09/18 16:00 08/09/18 20:00 Temperature 98.5 F 98.9 F 97.7 F Pulse Rate 60 68 62 Respiratory Rate 18 18 19 Blood Pressure 98/65 L 172/70 H 231/99 H Pulse Oximetry 97 97 98 08/10/18 00:00 Temperature 97.9 F Pulse Rate 60 Respiratory Rate 18 Blood Pressure 156/67 H Pulse Oximetry 97 Intake & Output 08/09/18 08/10/18 08/10/18 18:59 06:59 18:59 Intake Total 1000 / 1000 Balance 1000 / 1000 Weight 94.8 kg Intake: IV 1000 / 1000 NS Inj 1,000 ML @ 50 mls/hr IV. 1000 / 1000 CONT .Q20H YASMIN Rx#:[id number] Other: # Voids 3 Narrative: GENERAL: WDWN obese female patient, INAD. Awake and alert. Appears comfortable sitting up in bedside chair. SKIN: Warm and dry. HEENT: Atraumatic. Normocephalic. Pupils equal and round. No scleral icterus. No injection or drainage. No nasal bleeding or discharge. Mucous membranes pink and moist. NECK: Trachea midline. CARDIOVASCULAR: Regular rate and rhythm. No murmur appreciated. RESPIRATORY: No accessory muscle use. Clear to auscultation. Breath sounds equal bilaterally. GASTROINTESTINAL: Abdomen soft, non-tender, nondistended. +BS. MUSCULOSKELETAL: Extremities without clubbing, cyanosis, or edema. No obvious deformities. NEUROLOGICAL: Awake and alert. No obvious cranial nerve deficits. Motor grossly within normal limits. Able to move all extremities spontaneously. Normal speech. PSYCHIATRIC: Appropriate mood and affect; insight and judgment normal. Results - Labs CBC & Chem 7: 08/08/18 02:31 08/08/18 02:31 Laboratory Results - last 24 hr 08/09/18 08/09/18 08/09/18 05:57 11:25 12:56 POC Glucose 142 H Hemoglobin A1c 5.9 Ammonia 14 08/09/18 08/09/18 08/10/18 16:53 21:44 07:14 POC Glucose 209 H 115 H 159 H Hemoglobin A1c Ammonia Microbiology 08/07/18 21:20 Clean Catch Urine Urine Culture - Final Klebsiella pneumoniae - Imaging Impressions Myocardial Perfusion Scan Nuc Med 08/09/18 00:00 CONCLUSION: 1. No definite reversible perfusion defects are identified at this time. 2. Ejection fraction of 43%. - Procedures EXAM DATE: 08/09/2018 11:47 AM EDT AGE/SEX: 68 years / Female INDICATIONS:. . Syncope, elevated troponins, silent [place]. CLINICAL DATA: This is the patient's initial encounter. Patient reports that signs and symptoms have been present for 1 day and indicates a pain score of 0/ 10. MEDICAL/SURGICAL HISTORY: Diabetes. Hypertension. Neuropathy. Cholecystectomy. Gastric bypass. Tonsillectomy. History of carpal tunnel surgery and shoulder surgery. COMPARISON: No prior exams available for comparison. DOSE: 8.7 mCi Tc 99m Myoview at rest 25.4 mCi [id number] at stress 0.4 mg Lexiscan STRESS SYMPTOMS: Shortness of breath. EJECTION FRACTION: 43 % TECHNIQUE: The patient underwent pharmacologic stress with infusion of prescribed dose. Continuous ECG tracing was monitored during stress. Gated SPECT imaging was performed after stress and conventional SPECT imaging was performed at rest. The examination was performed on a SPECT/CT scanner, both attenuation and non-corrected datasets were reviewed. FINDINGS: Distribution: The maximum perfused segment at stress is in the anterior lateral wall. Perfusion Study: There is a mild to moderate fixed defect of the inferolateral wall. No definite reversible perfusion defects are identified to suggest stress-induced myocardial ischemia. Fixed apical defect. Gated Study: Mild hypokinesis seen. The ejection fraction is calculated at 43% . RISK CATEGORY: Intermediate (1-3 % Annual Mortality Rate) CONCLUSION: 1. No definite reversible perfusion defects are identified at this time. 2. Ejection fraction of 43%. Electronically signed by: Shorty Calderon MD 08/09/2018 11:59 AM EDT Assessment and Plan - Assessment (1) Encephalopathy acute Code(s): G93.40 - Encephalopathy, unspecified Status: Acute (2) Elevated troponin Code(s): R74.8 - Abnormal levels of other serum enzymes Status: Acute (3) Hypertriglyceridemia Code(s): E78.1 - Pure hyperglyceridemia Status: Acute (4) Urinary tract infection due to Klebsiella species Code(s): N39.0 - Urinary tract infection, site not specified; B96.1 - Klebsiella pneumoniae [K. pneumoniae] as the cause of diseases classified elsewhere Status: Acute (5) Diabetes Code(s): E11.9 - Type 2 diabetes mellitus without complications Status: Acute - Plan 68-year-old female with past medical history significant for type 1 diabetes mellitus, neuropathy and history of frequent UTIs presents to the emergency department for the evaluation of altered mental status and hypotension. Patient discharged yesterday. Discharge held awaiting EEG. DW Dr. Escobar this morning. She is cleared to be discharged without EEG being done and follow up with him in 4 weeks. Patient was reminded on seizure precautions, no driving, swimming, going up on heights, etc. Patient has been cleared from cardiology perspective for discharge. Patient is stable. No events noted overnight. Encephalopathy/Altered mental status Unclear etiology, suspect polypharmacy/alcohol. UDS + benzodiazepines. Serum EtOH 36. Cannot rule out TIA/CVA 08/08 patient reports episode of right-sided facial numbness, inability to speak and right upper and lower extremity weakness last night Unable to have MRI Carotid US neg Echo 55-60% EEG done, results pending Neurology following, appreciate assistance. If EEG neg, holter done and cleared by Cardiology may be discharged from neuro standpoint. Follow-up neurology as outpatient. Will need to have MRI done as outpatient in 6 weeks. Started on Plavix. Hold off on driving until further notice. Continue on Plavix neuro checks ASA and statin daily - not on either at home fall and seizure precautions ammonia level 14 Elevated troponin Cardiology following, appreciate assistance. Lexiscan completed showing fixed defect of the inferior lateral wall, no definite reversible perfusion defects. Cardiology has signed off. continuous cardiac monitoring UTI UCX + Klebsiella, pansensitive DC IV Rocephin Continue on Macrobid BID Hypertriglyceridemia Tg 238 Continue on statin therapy Diabetes mellitus Sliding-scale insulin Monitor blood glucose Neuropathy Holding home gabapentin given altered mental status DVT prophylaxis SCD/CHRISTIE hose Code Status: FULL Discussed Condition With: patient, nursing staff, Dr. Pearce, Dr. Escobar
[2018-08-10] MEDS: Insulin NovoLOG Aspart Correctional Sugar Inj SQ SCH (08:02)
[2018-08-10] MEDS: Nitrofurantoin Monohydrate-Macrocrystal 100 MG Capsule PO SCH (08:03)
--- NOTE | 2018-08-10 10:17 | P.PNCA ---
Subjective Interval history: No CV complaints Physical Exam Vital signs: Vital Signs 08/09/18 10:21 08/09/18 12:00 08/09/18 16:00 Temperature 98.5 F 98.9 F Pulse Rate 60 68 Respiratory Rate 18 18 Blood Pressure 98/65 L 172/70 H Pulse Oximetry 94 L 97 97 08/09/18 20:00 08/10/18 00:00 Temperature 97.7 F 97.9 F Pulse Rate 62 60 Respiratory Rate 19 18 Blood Pressure 231/99 H 156/67 H Pulse Oximetry 98 97 Intake & Output 08/09/18 08/10/18 08/10/18 18:59 06:59 18:59 Intake Total 1000 / 1000 Balance 1000 / 1000 Weight 94.8 kg Intake: IV 1000 / 1000 NS Inj 1,000 ML @ 50 mls/hr IV. 1000 / 1000 CONT .Q20H YASMIN Rx#:[id number] Other: # Voids 3 Narrative: Alert, mentally sheseemsa little bit "off" but notconfused ordelusional Neck no JVD CV S1S2 RRR Abd soft Ext no C/C/E Assessment and Plan - Assessment (1) Altered mental state Code(s): R41.82 - Altered mental status, unspecified Status: Acute Plan: She takes alot of meds and drinks wine. Plan per neuro (2) Elevated blood pressure reading Code(s): R03.0 - Elevated blood-pressure reading, without diagnosis of hypertension Status: Acute Plan: Per primary service (3) Elevated troponin Code(s): R74.8 - Abnormal levels of other serum enzymes Status: Acute Plan: Never had angina and SPECT OK - Plan I am signing off.
[2018-08-10 10:23] VITALS: BP 210/79; TEMP 97.6; O2SAT 96
[2018-08-10 11:07] VITALS: PULSE 52
--- NOTE | 2018-08-11 19:00 | MG ---
cc: Mark Grant MD EEG RECORD NUMBER: [id number] DESCRIPTION: Increased theta fast frequency is occurring; poly frequency theta and alpha activity as well by movement artifact 20-50 microvolt activity. Bisynchronous waveforms; reasonably good driving with photic stimulation, a little better on the right compared to the left. Some rhythmic theta right temporally epoch 54. Occasional temporal slowing suggesting a drowsy state. Overall good EEG variability and reactivity. Right temporal showed rhythmic, sharply contoured theta epoch 102. EKG showed sinus rhythm. INTERPRETATION: Mild encephalopathy, poly-frequencies. Clinical correlation. Mark Grant MD MG/ld/do , 05:04 PM , 05:10 PM MTDHermelinda
--- NOTE | 2018-08-11 21:17 | HM ---
Date Performed: 08/09/2018 Time Performed: 10:48:00 HOOKUP DATE: 08/09/18 10:48:00 AM Sat ANALYSIS START TIME: 08/09/2018 10:53:00 AM ANALYSIS END TIME: 08/10/2018 9:23:50 AM PATIENT AGE: 68 PATIENT HEIGHT PATIENT WEIGHT DRUG LIST PATIENT DIAGNOSIS: SYNCOPE TEST NARRATIVE: The patient's average heart rate was 63 BPM. No episodes of tachycardia wer e noted. Heart rates less than 50 BPM were noted 2% of the time. No pauses exceeding 2.0 seconds were noted. 214 ventricular ectopics, which represented < 1% of the total beat count, were noted . The highest ventricular ectopic frequency occurred from 06:00 AM to 07:00 AM Sun. During this carmelo e 26 VE(s) occurred. Ventricular ectopics were observed as 212 isolated beat(s) and as 1 couplet(s). No runs were noted. 33 supraventricular ectopics, which represented < 1% of the total beat coun t, were noted. The highest supraventricular ectopic frequency occurred from 10:00 PM to 11:00 PM Sat . During this time 5 SVE(s) occurred. No episodes of ST depression (defined as -1.0 mm or more) were noted in channel 1. No episodes of ST depression (defined as -1.0 mm or more) were noted in abena nnel 2. No episodes of ST depression (defined as -1.0 mm or more) were noted in channel 3. NO DIARY RETURNED TEST INTERPRETATION: Patient undergoes Holter monitor to evaluate syncope. Only the expanded tra cings are subject to interpretation. No diary provided The expanded tracings show Sinus rhythm with occasional PAC'S and PVC'S. Maximun heart rate is sinus at 99bpm and the minimun heart rate is sinus at 48bpm. One(1) Ventricular couplet is noted but thwere is no complex ectopy. Brief episodes o f bigeminy are noted No pauses or significant bradyarrhythmias are noted. CONCLUSIONS: 1. Sinus rhyth m with occasional PAC'S and PVC'S 2. One ventricular couplet but noventricular ectopy 3. No significa nt tachyarrhythmias or bradyarrhythmias 4.No diary provided so it is unknown as to whether the patien t is symptomatic Signed by : Lisa lazar
== END 2018-08-10 11:47 | disposition home or self-care (01) ==
LOC: NEDA 18:14 → NEPE 18:14 → N05 08-08 01:27
PROVIDERS: ADMIT Hospitalist; ATTEND Family Medicine